=== PATIENT | female | born 1965 | race Caucasian/White ===

== ENCOUNTER 2019-11-18 11:16 | Outpatient (CLI) | payer BC, SELFPAY ==
--- NOTE | ~2019-11-18 | MM_ITS ---
MM diagnostic mammo unilat RT 11/18/2019 12:35 Indication: Follow-up right breast calcifications Procedure: Digital diagnostic images of the right breast/s] were performed using full field digital m ammography. 3-D tomosynthesis were also obtained and synthetic 2-D images were generated. CAD analysi s was performed and interpreted. Comparison: Comparison to multiple prior studies sequentially, with oldest reviewed study dated 08/25. Findings: The breasts are heterogenously dense, which may obscure small masses. There are scattered p unctate monomorphic calcifications of the right breast which are likely benign. Impression: 1: Probable benign right breast calcifications. BI-RADS CATEGORY 3-PROBABLY BENIGN FINDING RECOMMENDATION: 6 month follow up recommended. Reviewed, dictated and finalized at location A. [employer] Impression: 1: Probable benign right breast calcifications. BI-RADS CATEGORY 3-PROBABLY BENIGN FINDING RECOMMENDATION: 6 month follow up recommended.
== END 2019-11-18 11:17 | disposition home or self-care (01) ==
LOC: ANHIMG 11:17
PROVIDERS: Visit Provider Obstetrics & Gynecology Gynecology
DX: R92.1 Mammographic calcification found on diagnostic imaging of breast (principal)
CPT/HCPCS: 77065

== ENCOUNTER 2020-06-02 16:24 | Outpatient (CLI) | payer BC, SELFPAY ==
[2020-06-04 01:17] LABS: SARS-CoV-2 RNA PCR Negative
== END 2020-06-02 16:25 | disposition home or self-care (01) ==
LOC: CHSLAB 16:25
PROVIDERS: PCP Nurse Practitioner Family; Visit Provider Nurse Practitioner Family
DX: J02.9 Acute pharyngitis, unspecified (principal); Z20.828 Contact with and (suspected) exposure to other viral communicable diseases
CPT/HCPCS: 87635; C9803; U0003

== ENCOUNTER 2020-09-23 12:03 | Outpatient (CLI) | payer BC, SELFPAY ==
--- NOTE | ~2020-09-23 | US_ITS ---
EXAMINATION: US renal BI DATE: 09/23/2020 12:44 INDICATION: Unspecified abdominal pain. TECHNIQUE: Multiple ultrasound grayscale images of the kidneys were obtained. COMPARISON: None. FINDINGS: The right kidney measures 9.6 x 4.1 x 5.7 cm. The left kidney measures 9.8 x 5.7 x 5.0 cm. The kidney s demonstrate normal echogenicity. There is no hydronephrosis in either kidney. No stones identified . The bladder is normal. IMPRESSION: 1. Normal kidneys without hydronephrosis. Reviewed, dictated and finalized at location A. MAN
[2020-09-23 13:02] LABS: Alanine Aminotransferase 44 U/L (14-59); Albumin Level 3.7 g/dL (3.4-5.0); Alkaline Phosphatase 110 U/L (46-116); Anion Gap 7 mmol/L (8-16); Aspartate Amino Transferase 25 U/L (15-37); Bilirubin,Total 0.4 mg/dL (0.00-1.00); Blood Urea Nitrogen 9 mg/dL (7-18); Calcium 8.9 mg/dL (8.5-10.1); Carbon Dioxide 30 mmol/L (21-32); Chloride 102 mmol/L (98-108); Cholesterol 167 mg/dL (0-200); Estimated Glomerular Filt Rate > 60; Glucose 100 mg/dL (70-99); HDL Direct 44 mg/dL (40-60); LDL Cholesterol Calculated 79 mg/dL (<130); Osmolality Calculated 286 mOsm/kg (285-295); Potassium 4.2 mmol/L (3.5-5.1); Sodium 139 mmol/L (136-145); Triglycerides 219 mg/dL (0-150)
== END 2020-09-23 12:04 | disposition home or self-care (01) ==
LOC: CHSIMG 12:06
PROVIDERS: PCP Nurse Practitioner Family; Visit Provider Nurse Practitioner Family
DX: E78.5 Hyperlipidemia, unspecified (principal); R10.9 Unspecified abdominal pain; R30.0 Dysuria
CPT/HCPCS: 36415; 76775; 80053; 80061

== ENCOUNTER 2020-11-16 12:45 | Outpatient (CLI) | payer BC, SELFPAY ==
[2020-11-17 14:42] LABS: SARS-CoV-2 RNA PCR Positive
== END 2020-11-16 12:46 | disposition home or self-care (01) ==
PROVIDERS: PCP Nurse Practitioner Family; Visit Provider Nurse Practitioner Family
DX: U07.1 COVID-19 (principal); R05 Cough
CPT/HCPCS: C9803; U0003; U0005

== ENCOUNTER 2020-11-25 11:13 | Outpatient (CLI) | payer BC, SELFPAY ==
--- NOTE | ~2020-11-25 | XR_ITS ---
EXAMINATION: XR chest 2V DATE: 11/25/2020 11:45 INDICATION: Right upper quadrant abdominal pain. Cough. Recent COVID-19 pneumonia. TECHNIQUE: Frontal and lateral views of the chest were obtained. COMPARISON: Chest 2 views 06/06/2018 FINDINGS: A calcified right lung nodule and calcified right hilar and mediastinal lymph nodes are con sistent with old granulomatous disease. No pleural effusion or pneumothorax. The heart size is normal . There are surgical clips in the abdomen. IMPRESSION: 1. No acute cardiopulmonary disease. Reviewed, dictated and finalized at location A. [employer]
== END 2020-11-25 11:14 | disposition home or self-care (01) ==
LOC: CHSIMG 11:18
PROVIDERS: PCP Nurse Practitioner Family; Visit Provider Nurse Practitioner Family
DX: R09.89 Other specified symptoms and signs involving the circulatory and respiratory systems (principal)
CPT/HCPCS: 71046

== ENCOUNTER 2020-12-07 12:15 | Outpatient (CLI) | payer BC, SELFPAY ==
--- NOTE | ~2020-12-07 | MM_ITS ---
EXAMINATION: MM diagnostic aleta BI w william HISTORY: Follow-up right breast calcifications. TECHNIQUE: Additional 3-D tomosynthesis images of the breasts were performed and synthetic 2-D images were generated. CAD analysis was submitted and interpreted. COMPARISON: Comparison to multiple prior studies sequentially, with oldest reviewed study dated 06/25. BREAST PARENCHYMAL COMPOSITION: Breast composed of scattered areas of fibroglandular density. FINDINGS: Stable benign-appearing bilateral breast calcifications. Stable intramammary lymph node in the upper outer quadrant of the left breast. No new masses, calcifications or architectural distortio n in either breast to suggest malignancy. IMPRESSION: 1. No mammographic evidence for malignancy in either breast. Benign findings. 2. Routine yearly screening mammogram and regular clinical breast examination are recommended. BI-RADS Category 2: Benign finding(s). Reviewed, dictated and finalized at location A. IMPRESSION: 1. No mammographic evidence for malignancy in either breast. Benign findings. 2. Routine yearly screening mammogram and regular clinical breast examination a re recommended. BI-RADS Category 2: Benign finding(s).
== END 2020-12-07 12:16 | disposition home or self-care (01) ==
LOC: ANHIMG 12:17
PROVIDERS: PCP Nurse Practitioner Family; Visit Provider Nurse Practitioner
DX: R92.8 Other abnormal and inconclusive findings on diagnostic imaging of breast (principal)
CPT/HCPCS: 77062; 77066; G0279

== ENCOUNTER 2021-01-26 17:34 | Emergency (ER) | payer BC, SELFPAY ==
[2021-01-26 17:50] VITALS: BP 141/72; PULSE 99; RESP 16; TEMP 36.8; O2SAT 97
--- NOTE | 2021-01-26 18:17 | ED.BACK ---
HPI - Back Pain/Injury General Chief Complaint: Back Pain/Injury Stated Complaint: back pain Time Seen by Provider: 01/26/21 18:05 Source: patient Mode of arrival: ambulatory Limitations: no limitations History of Present Illness HPI Narrative: Patient comes in after a fall at home. She fell and hit her chest, below her left breast on a concrete retaining wall. Her left knee struck the ground. Pain is moderately severe in the left chest, below breast, with sharp pain on inspiration, since fall against wall. She denies shortness of breath. She denies feeling her heart is racing. Pain has been ongoing since fall about 3 hours ago. She has not taken any medications, and nothing has made the discomfort any better or worse. No other associated signs or symptoms. MD elicited complaint: fall Pertinent past history: recent trauma Onset (ago): hour(s) Timing: constant Severity: moderate Quality: sharp Radiation: none Exacerbating factors: none Relieving factors: none Context: fall Associated symptoms: denies other symptoms Related Data Home Medications Medication Instructions Recorded Confirmed escitalopram oxalate [Lexapro] 10 mg PO DAILY 08/08/19 01/26/21 hydroxychloroquine [Plaquenil] 200 mg PO BID 08/08/19 01/26/21 Allergies Allergy/AdvReac Type Severity Reaction Status Date / Time Penicillins Allergy Intermediate Unknown Verified 12/03/20 11:38 Sulfa (Sulfonamide Allergy Unknown EXACERBATION Verified 12/03/20 11:38 Antibiotics) OF LUPUS Review of Systems Constitutional: Constitutional: Reports no additional constitutional complaints Eyes: Eyes: Reports no additional eye complaints ENT: Reports system reviewed and no additional complaints, except as documented Cardiovascular: Cardiovascular: Reports no additional cardiovascular complaints Respiratory: Respiratory: Reports no additional respiratory complaints Gastrointestinal: Gastrointestinal: Reports no additional gastrointestinal complaints Genitourinary: Genitourinary: Reports no additional female genitourinary complaints Musculoskeletal: Musculoskeletal: Reports no additional musculoskeletal complaints Integumentary/Breasts: Skin/Breast: Reports system reviewed and no additional complaints, except as docu Neurologic: Reports system reviewed and no additional complaints, except as documented Psychiatric: Psychiatric: Reports no additional psychiatric complaints Endocrine: Endocrine: Reports no additional endocrine complaints Hematologic/Lymphatic: Hematologic/Lymphatic: Reports no additional hematologic/lymphatic complaints Allergic/Immunologic: Allergic/Immunologic: Reports no additional allergic/immunologic complaints [facility] Past Medical History Medical History Anxiety Arthritis Chronic back pain Depression FH: cholecystectomy LEIDA (generalized anxiety disorder) Hypercholesterolemia Hyperlipidemia Lupus Nicotine dependence Postmenopausal Surgical History Surgical History (Reviewed 01/27/21 @ : by Adams Holguin MD) H/O tubal ligation History of appendectomy Previous section Family History Family History (Reviewed 01/27/21 @ : by Adams Holguin MD) Other Family history of arthritis Hypertension Social History Social History (Reviewed 01/27/21 @ : by Adams Holguin MD) Smoking status: Never smoker Alcohol intake: current Exam Const: General: healthy appearing, no acute distress and alert Orientation/consciousness: patient oriented x3 HENMT: Head: normal to inspection Ears: external ears normal and TM's normal bilaterally General nose exam: Normal external nose present Throat: posterior oropharynx normal Eyes: Conjunctivae: conjunctivae normal Neck: Neck: normal visual inspection Chest: Chest palpation & inspection: normal inspection of the chest Other: mild tenderness to area of ribs just below left breast Resp: Effort & In
[2021-01-26] MEDS: DEXAMETHASONE 4 MG TABLET 12 MG PO (18:30)
[2021-01-26] MEDS: KETOROLAC (*BKC) 60 MG/2 ML VIAL IM (18:30)
[2021-01-26] MEDS: BACLOFEN 10 MG TABLET 20 MG PO (18:30)
== END 2021-01-26 19:13 | disposition home or self-care (01) ==
PROVIDERS: Emergency Provider Emergency Medicine; PCP Nurse Practitioner Family
DX: M54.5 Low back pain (principal); M54.16 Radiculopathy, lumbar region; F41.9 Anxiety disorder, unspecified; M19.90 Unspecified osteoarthritis, unspecified site; F41.1 Generalized anxiety disorder; E78.00 Pure hypercholesterolemia, unspecified; E78.5 Hyperlipidemia, unspecified; M32.9 Systemic lupus erythematosus, unspecified; F17.200 Nicotine dependence, unspecified, uncomplicated
CPT/HCPCS: 96372; 99283; A9270; J1885; J8540

== ENCOUNTER 2021-01-29 07:10 | Outpatient (CLI) | payer BC, SELFPAY ==
[2021-01-29 08:20] LABS: Anion Gap 13 mmol/L (8-16); Blood Urea Nitrogen 16 mg/dL (7-18); Calcium 9.3 mg/dL (8.5-10.1); Carbon Dioxide 24 mmol/L (21-32); Chloride 103 mmol/L (98-108); Estimated Glomerular Filt Rate > 60; Glucose 141 mg/dL (70-99); Osmolality Calculated 293 mOsm/kg (285-295); Sodium 140 mmol/L (136-145)
== END 2021-01-29 07:11 | disposition home or self-care (01) ==
LOC: CHSLAB 07:17
PROVIDERS: PCP Nurse Practitioner Family
DX: M54.5 Low back pain (principal)
CPT/HCPCS: 36415; 80048

== ENCOUNTER 2021-02-22 14:35 | Emergency (ER) | payer BC, SELFPAY ==
--- NOTE | ~2021-02-22 | XR_ITS ---
XR toe 1st RT min 2V 02/22/2021 15:16 Indication: Right first toe pain Procedure: 3 views right first toe Comparison: 08/25/2010 Findings: There is moderate osteoarthritis of the first MTP joint with hallux valgus. Osteopenia. Mil d soft tissue swelling of the first digit. No foreign bodies. No acute fracture. No evidence for oste omyelitis. Lisfranc joint intact. Impression: 1: No acute bone or joint abnormality. 2: Moderate osteoarthritis first MTP joint hallux valgus. Reviewed, dictated and finalized at location A. Impression: 1: No acute bone or joint abnormality. 2: Moderate osteoarthritis first MTP joint hallux valgus.
[2021-02-22 14:40] VITALS: BP 122/60; PULSE 62; RESP 17; TEMP 37.2; O2SAT 95
--- NOTE | 2021-02-22 15:20 | ED.GENADULT ---
HPI - General Adult General Chief complaint: Extremity Injury, Lower Stated complaint: Pain in big R toe Source: patient Mode of arrival: ambulatory Limitations: no limitations History of Present Illness HPI narrative: Nelli is a 55F with a PMH of nicotine dependence, LEIDA, HLD, previous COVID19 infection and SLE with vasculitis that presented pain, swelling and discoloration that has been getting worse for a few weeks. First she stubbed it and had a laceration. It had swelling and pain so her regular doctor gave her clindamycin. She took this for a few days but stopped as she had a yeast infection and other adverse effects. Despite the antibiotics it continued to swell, become more purple, and more painful. Related Data Home Medications Medication Instructions Recorded Confirmed escitalopram oxalate [Lexapro] 10 mg PO DAILY 08/08/19 02/22/21 hydroxychloroquine [Plaquenil] 200 mg PO BID 08/08/19 02/22/21 rosuvastatin 10 mg PO DAILY 02/22/21 02/22/21 Allergies Allergy/AdvReac Type Severity Reaction Status Date / Time Penicillins Allergy Intermediate Unknown Verified 02/12/21 14:14 Sulfa (Sulfonamide Allergy Unknown EXACERBATION Verified 02/12/21 14:14 Antibiotics) OF LUPUS Review of Systems Constitutional: Constitutional: Reports no additional constitutional complaints, Denies chills and Denies fever(s) Eyes: Eyes: Reports no additional eye complaints ENT: Reports system reviewed and no additional complaints, except as documented Cardiovascular: Cardiovascular: Reports no additional cardiovascular complaints Respiratory: Respiratory: Reports no additional respiratory complaints Gastrointestinal: Gastrointestinal: Reports no additional gastrointestinal complaints Genitourinary: Genitourinary: Reports no additional female genitourinary complaints Musculoskeletal: Musculoskeletal: Reports no additional musculoskeletal complaints Integumentary/Breasts: Skin/Breast: Reports as per HPI Neurologic: Reports system reviewed and no additional complaints, except as documented Psychiatric: Psychiatric: Reports no additional psychiatric complaints Endocrine: Endocrine: Reports no additional endocrine complaints Hematologic/Lymphatic: Hematologic/Lymphatic: Reports as per HPI Allergic/Immunologic: Allergic/Immunologic: Reports no additional allergic/immunologic complaints [facility] Past Medical History Medical History (Updated 02/22/21 @ 17:32 by Lee Gaxiola DO) Anxiety Arthritis Chronic back pain Depression FH: cholecystectomy LEIDA (generalized anxiety disorder) Hypercholesterolemia Hyperlipidemia Lupus Nicotine dependence Postmenopausal Surgical History Surgical History H/O tubal ligation History of appendectomy Previous section Family History Family History Other Family history of arthritis Hypertension Social History Social History Smoking status: Current every day smoker Alcohol intake: current Substance use: never Substance use type: does not use Exam Const: General: no acute distress and alert; No confusion Orientation/consciousness: patient oriented x3 Limitations: No altered mental status HENMT: Head: normal to inspection Other: atraumatic Eyes: Conjunctivae: conjunctivae normal Pupils: Equal, round and reactive pupils present Neck: Neck: normal visual inspection Chest: Chest palpation & inspection: normal inspection of the chest Resp: Effort & Inspection: normal respiratory effort, not labored and not tachypneic Cardio: Rate: regular rate GI: GI Palp: Yes Soft to palpation, No Tenderness to palpation present (GI) and No Guarding due to palpation present (GI) : General: Yes no CVA tenderness Skin: Other: Right great toe was swollen, purple and very TTP. It had 3 sec capillar
--- NOTE | 2021-02-22 15:27 | PC.NURSE ---
SPO2 ATTEMPTED ON RIGHT GREAT TOE UNSUCCESSFUL - SPO2 ON LEFT GREAT TOE 85% - SUCCESSFUL SPO2 ON BUE 95%
[2021-02-22 15:29] LABS: Basophils Absolute Auto 0.05 K/mm3 (0.00-0.10); Basophils Percent Auto 0.7 % (0.0-1.0); Eosinophils Absolute Auto 0.37 K/mm3 (0.02-0.50); Eosinophils Percent Auto 5.3 % (1.0-6.0); Hematocrit 41.7 % (35.0-49.0); Hemoglobin 14.4 g/dL (12.0-15.0); Immature Granulocyte Absolute 0.02 K/mm3 (0.00-0.00); Immature Granulocyte Percent A 0.3 % (0.0-0.0); Lymphocytes Absolute Auto 2.88 K/mm3 (1.10-4.50); Mean Corpuscular HGB Conc 34.5 g/dL (32.0-36.0); Mean Corpuscular Hemoglobin 32.5 pg (27.0-31.0); Mean Corpuscular Volume 94.1 fL (78.0-102.0); Mean Platelet Volume 9.8 fl (9.2-11.8); Monocytes Absolute Auto 0.67 K/mm3 (0.10-0.90); Monocytes Percent Auto 9.5 % (2.0-11.0); Neutrophils Percent Auto 43.2 % (50.0-70.0); Platelet Count Result 266 K/mm3 (150-420); Red Blood Count 4.43 M/mm3 (4.20-5.40)
[2021-02-22 15:52] LABS: Alanine Aminotransferase 39 U/L (14-59); Albumin Level 3.4 g/dL (3.4-5.0); Alkaline Phosphatase 114 U/L (46-116); Anion Gap 11 mmol/L (8-16); Aspartate Amino Transferase 26 U/L (15-37); Bilirubin,Total 0.3 mg/dL (0.00-1.00); Blood Urea Nitrogen 7 mg/dL (7-18); Calcium 9.2 mg/dL (8.5-10.1); Carbon Dioxide 26 mmol/L (21-32); Chloride 100 mmol/L (98-108); Estimated Glomerular Filt Rate > 60; Glucose 109 mg/dL (70-99); Osmolality Calculated 283 mOsm/kg (285-295); Potassium 4.1 mmol/L (3.5-5.1); Sodium 137 mmol/L (136-145); Total Protein 7.3 g/dL (6.4-8.2)
[2021-02-22 15:54] LABS: CRP 0.4 mg/dL (0.0-0.9)
[2021-02-22] MEDS: HYDROcodone/acetaminophen (*CRX) 5-325 MG TABLET 1 TAB PO (16:00)
[2021-02-22 16:28] LABS: Erythrocyte Sedimentation Rate 42 mm/hr (0-20)
--- NOTE | 2021-02-22 16:38 | PC.NURSE ---
DR DIAS CALLED FOR CONSULT [phone]
[2021-02-22 17:18] LABS: Partial Thromboplastin Time 26.6 SEC (23.90-30.70); Prothrombin Time 10.3 Seconds (9.50-12.10)
[2021-02-22] MEDS: HEPARIN SODIUM 5,000 UNITS/ML VIAL 4000 UNITS IV PUSH (17:29)
[2021-02-22] MEDS: HEPARIN SOD/D5W 100 UNITS/ML 25,000 UNITS/250 ML BAG 12 UNITS IV CONT (17:29)
[2021-02-22 17:45] LABS: SARS-CoV-2 Ag Negative (Negative)
[2021-02-22 17:51] VITALS: BP 132/85; PULSE 113; RESP 17; O2SAT 95
[2021-02-22 18:09] VITALS: BP 123/76; PULSE 101; RESP 15; O2SAT 94
== END 2021-02-22 18:15 | disposition short-term general hospital (02) ==
PROVIDERS: Emergency Provider Family Medicine; PCP Nurse Practitioner Family
DX: I99.8 Other disorder of circulatory system (principal); E78.5 Hyperlipidemia, unspecified; I77.6 Arteritis, unspecified; M32.9 Systemic lupus erythematosus, unspecified; M54.9 Dorsalgia, unspecified; G89.29 Other chronic pain; E78.00 Pure hypercholesterolemia, unspecified; M19.90 Unspecified osteoarthritis, unspecified site; F41.1 Generalized anxiety disorder; F17.200 Nicotine dependence, unspecified, uncomplicated
CPT/HCPCS: 36415; 73660; 80053; 85025; 85610; 85652; 85730; 86140; 87426; 96365; 99285; A9270; C9803; J1644

== ENCOUNTER 2021-03-09 20:27 | Emergency (ER) | payer BC, SELFPAY ==
[2021-03-09 20:48] VITALS: BP 115/72; PULSE 95; RESP 20; TEMP 36.9; O2SAT 97
--- NOTE | 2021-03-09 21:57 | ED.WOUNDLAC ---
HPI - Wound/Laceration General Source: patient and family Mode of arrival: ambulatory History of Present Illness HPI narrative: Patient presents after having femoral bypass on both sides. Wounds in groin are healing, she is worried because wound on right side, has partially opened, and the subcutaneous tissue there, which is visible, this is white, she has interpreted this subcutaneous tissue, as being pus. The wounds have a minimal amount of erythema them. Onset (ago): day(s) Location: other (groin bilaterally) Place: home Treatments prior to arrival: other (dry dressings) Related Data Home Medications Medication Instructions Recorded Confirmed escitalopram oxalate [Lexapro] 10 mg PO DAILY 08/08/19 03/09/21 hydroxychloroquine [Plaquenil] 200 mg PO BID 08/08/19 03/09/21 rosuvastatin [Crestor] 10 mg PO DAILY 02/22/21 03/09/21 metoprolol succinate 25 mg PO DAILY 03/09/21 03/09/21 Allergies Allergy/AdvReac Type Severity Reaction Status Date / Time Penicillins Allergy Intermediate Unknown Verified 03/09/21 20:53 Sulfa (Sulfonamide Allergy Unknown EXACERBATION Verified 03/09/21 20:53 Antibiotics) OF LUPUS Review of Systems Constitutional: Constitutional: Reports no additional constitutional complaints, Denies chills and Denies fever(s) Eyes: Eyes: Reports no additional eye complaints ENT: Reports system reviewed and no additional complaints, except as documented Cardiovascular: Cardiovascular: Reports no additional cardiovascular complaints Respiratory: Respiratory: Reports no additional respiratory complaints Gastrointestinal: Gastrointestinal: Reports no additional gastrointestinal complaints Genitourinary: Genitourinary: Reports no additional female genitourinary complaints Musculoskeletal: Musculoskeletal: Reports no additional musculoskeletal complaints Integumentary/Breasts: Skin/Breast: Reports as per HPI Neurologic: Reports system reviewed and no additional complaints, except as documented Psychiatric: Psychiatric: Reports no additional psychiatric complaints Endocrine: Endocrine: Reports no additional endocrine complaints Hematologic/Lymphatic: Hematologic/Lymphatic: Reports no additional hematologic/lymphatic complaints Allergic/Immunologic: Allergic/Immunologic: Reports no additional allergic/immunologic complaints [facility] Past Medical History Medical History Anxiety Arthritis Chronic back pain Depression FH: cholecystectomy LEIDA (generalized anxiety disorder) Hypercholesterolemia Hyperlipidemia Lupus Nicotine dependence Postmenopausal Surgical History Surgical History H/O tubal ligation History of appendectomy Previous section Family History Family History Other Family history of arthritis Hypertension Social History Social History Smoking status: Current every day smoker Alcohol intake: current Substance use: never Substance use type: does not use Gender identity (if verbalized by the patient): Male Exam Const: General: no acute distress Orientation/consciousness: patient oriented x3 HENMT: Head: normal to inspection Ears: external ears normal General nose exam: Normal external nose present Mouth: Yes Normal oral and palatal mucosa present Throat: posterior oropharynx normal Eyes: Conjunctivae: conjunctivae normal Neck: Neck: normal visual inspection Chest: Chest palpation & inspection: normal inspection of the chest Resp: Effort & Inspection: normal respiratory effort Cardio: Rate: regular rate Rhythm: regular rhythm GI: GI Palp: Yes Soft to palpation (nontender) Skin: Other: small laceration wound to right groin from surgery is healing, but with some partial separation. wound to left groin is healing well. she has a small woun
[2021-03-09 22:18] VITALS: BP 118/64; PULSE 87; RESP 20; TEMP 36.8; O2SAT 97
[2021-03-09] MEDS: CEPHALEXIN 500 MG CAPSULE (22:18)
== END 2021-03-09 22:20 | disposition home or self-care (01) ==
PROVIDERS: Emergency Provider Emergency Medicine; PCP Nurse Practitioner Family
DX: L53.8 Other specified erythematous conditions (principal); T81.89XA Other complications of procedures, not elsewhere classified, initial encounter
CPT/HCPCS: 99283; A9270

== ENCOUNTER 2021-09-21 08:53 | Outpatient (CLI) | payer BC, SELFPAY ==
[2021-09-21 09:11] LABS: Basophils Absolute Auto 0.06 K/mm3 (0.00-0.10); Basophils Percent Auto 0.8 % (0.0-1.0); Eosinophils Absolute Auto 0.36 K/mm3 (0.02-0.50); Eosinophils Percent Auto 4.8 % (1.0-6.0); Hematocrit 45.2 % (35.0-49.0); Hemoglobin 15.2 g/dL (12.0-15.0); Immature Granulocyte Absolute 0.02 K/mm3 (0.00-0.00); Immature Granulocyte Percent A 0.3 % (0.0-0.0); Lymphocytes Absolute Auto 3.55 K/mm3 (1.10-4.50); Mean Corpuscular HGB Conc 33.6 g/dL (32.0-36.0); Mean Corpuscular Hemoglobin 32.3 pg (27.0-31.0); Mean Platelet Volume 9.5 fl (9.2-11.8); Monocytes Absolute Auto 0.64 K/mm3 (0.10-0.90); Monocytes Percent Auto 8.5 % (2.0-11.0); Neutrophils Absolute Auto 2.9 K/mm3 (1.7-7.2); Neutrophils Percent Auto 38.6 % (50.0-70.0); Platelet Count Result 176 K/mm3 (150-420); Red Blood Count 4.71 M/mm3 (4.20-5.40); Red Cell Distribution Width 14.1 % (11.6-14.4); White Blood Count 7.6 K/mm3 (4.8-10.8)
[2021-09-21 09:49] LABS: Alanine Aminotransferase 33 U/L (14-59); Albumin Level 3.5 g/dL (3.4-5.0); Alkaline Phosphatase 105 U/L (46-116); Anion Gap 6 mmol/L (8-16); Aspartate Amino Transferase 24 U/L (15-37); Bilirubin,Total 0.3 mg/dL (0.00-1.00); Blood Urea Nitrogen 10 mg/dL (7-18); Calcium 8.6 mg/dL (8.5-10.1); Carbon Dioxide 29 mmol/L (21-32); Chloride 107 mmol/L (98-108); Estimated Glomerular Filt Rate > 60; Glucose 93 mg/dL (70-99); Osmolality Calculated 293 mOsm/kg (285-295); Potassium 4.1 mmol/L (3.5-5.1); Sodium 142 mmol/L (136-145); Total Protein 6.6 g/dL (6.4-8.2)
== END 2021-09-21 08:54 | disposition home or self-care (01) ==
LOC: CHSLAB 08:56
PROVIDERS: PCP Nurse Practitioner Family
DX: Z01.812 Encounter for preprocedural laboratory examination (principal)
CPT/HCPCS: 36415; 80053; 85025

== ENCOUNTER 2022-08-09 08:52 | Outpatient (CLI) | payer BC, SELFPAY ==
--- NOTE | ~2022-08-09 | MM_ITS ---
EXAMINATION: MM screening [place] BI w william HISTORY: Screening TECHNIQUE: Craniocaudal and mediolateral oblique 3-D tomosynthesis images were obtained and synthetic 2-D images were generated. CAD analysis was submitted and interpreted. COMPARISON: Comparison to multiple prior studies sequentially, with oldest reviewed study dated 01/2017. BREAST PARENCHYMAL COMPOSITION: There are scattered areas of fibroglandular density. FINDINGS: There are focal asymmetries bilaterally including the medial aspect of the right breast on CC view and central aspect of the left breast on MLO view, both located anteriorly. There are benign breast calcifications. No suspicious architectural distortion. IMPRESSION: 1. Developing bilateral breast asymmetries. 2. Additional mammographic views and possible breast ultrasound are recommended. BI-RADS Category 0: Incomplete: Needs additional imaging evaluation. Reviewed, dictated and finalized at location A. [employer] IMPRESSION: 1. Developing bilateral breast asymmetries. 2. Additional mammographic views and possible breast ultrasound are recommended . BI-RADS Category 0: Incomplete: Needs additional imaging evaluation.
--- NOTE | ~2022-08-09 | DEXA_ITS ---
Bone Density Report Name: GREER HANNA Age: 57 Sex: Female Ethnicity: White Date of : 1965 Indication: postmenopausal; screening for osteoporosis; height loss; Referring Provider: SARAH, BRENDA Study: Bone densitometry was performed. Exam Date: August 09, 2022 Accession number: [id number] Bone Density: Region BMD T-score Z-score Classification AP Spine(L1, L2, L3) 1.364 3.1 4.4 Normal Femoral Neck (Left) 0.796 -0.5 0.7 Normal Total Hip (Left) 0.972 0.2 1.1 Normal Femoral Neck (Right) 0.735 -1.0 0.2 Normal Total Hip (Right) 0.858 -0.7 0.1 Normal Total Hip Mean 0.915 -0.3 0.6 Normal World Health Organization criteria for BMD impression classify patients as: Normal (T-score at or above -1.0), Osteopenia (T-score between -1.0 and -2.5), or Osteoporosis (T-score at or below -2.5). 10-year Fracture Risk: FRAX not reported because: All T-scores for Spine Total, Hip Total, Femoral Neck at or above -1.0 Clinical Information Provided by Patient: Smokes Patient maximum height was 65 Drinks caffeinated beverages Onset of menses at age 11 Number of children 3 Impression: The patient has normal bone mass. The patient has risk factors, including: smoking. Discussion: BONE DENSITY IS ABOVE THE MINIMUM DESIRABLE LEVEL AT ALL SKELETAL SITES TESTED. This patient?s bone mineral density is above the minimum desirable level (T-score -1.0 or better) at all sites measured. The patient should follow a healthful lifestyle (good nutrition with adequate calcium and vitamin D, and appropriate weight-bearing exercise). Follow-Up: Consider repeating this study in 5 years or sooner if there is some new clinical indication. Reported by: CHARLES on 08/09/2022 9:39:00 AM. Reviewed, dictated and finalized at location AWale JC
== END 2022-08-09 08:53 | disposition home or self-care (01) ==
PROVIDERS: PCP Nurse Practitioner Family; Visit Provider Nurse Practitioner
DX: Z12.31 Encounter for screening mammogram for malignant neoplasm of breast (principal); M85.88 Other specified disorders of bone density and structure, other site; R92.8 Other abnormal and inconclusive findings on diagnostic imaging of breast
CPT/HCPCS: 77063; 77067; 77080

== ENCOUNTER 2022-09-04 12:05 | Emergency (ER) | payer BC, SELFPAY ==
[2022-09-04 12:15] VITALS: BP 150/91; PULSE 94; RESP 20; TEMP 36.5; O2SAT 98
--- NOTE | 2022-09-04 13:57 | ED.URI ---
HPI - URI/Sore Throat General Chief Complaint: Upper Respiratory Infection Stated Complaint: Chest Congestion/Cough Time Seen by Provider: 09/04/22 13:58 Source: patient, RN notes reviewed and old records reviewed Mode of arrival: ambulatory Limitations: no limitations History of Present Illness HPI Narrative: 57 year old female who presents to [facility] care with complaints of 1 1/2 weeks duration of head congestion, chest congestion, cough, some dyspnea and has noted some wheezing. Patient reports that she has taken NyQuil, Claritin, Delsym cough syrup, and cold medication. Patient reports that she has not had Covid vaccinations or flu shot, did have COVID previously in 2019. Patient reports generalized discomfort. MD elicited complaint: cough, rhinorrhea and nasal congestion Pertinent past history: immunosuppression and other (tobacco use) Onset (ago): week(s) (1.5) Pain scale (0-10): 5 Treatments prior to arrival: cold medicine and other (Delsym and Claritin) Related Data Home Medications Medication Instructions Recorded Confirmed metoprolol succinate 25 mg 25 mg PO DAILY 03/09/21 09/04/22 tablet,extended release 24 hr aspirin 81 mg chewable tablet 81 mg PO DAILY 09/04/22 09/04/22 Allergies Allergy/AdvReac Type Severity Reaction Status Date / Time Penicillins Allergy Intermediate Unknown Verified 09/04/22 13:30 Sulfa (Sulfonamide Allergy Unknown EXACERBATION Verified 09/04/22 13:30 Antibiotics) OF LUPUS Review of Systems Review of Systems: CONSTITUTIONAL: Denies fever, chills, or sweats. EYES: Denies visual changes, redness, or discharge. ENT:Reports rhinorrhea, congestion,no sore throat, or otalgia. CARDIOVASCULAR: Denies chest pain, palpitations, or edema. RESPIRATORY: Reports cough or dyspnea and wheezing GASTROINTESTINAL: Denies abdominal pain, nausea, vomiting, or diarrhea. GENITOURINARY: Denies dysuria or hematuria. SKIN: Denies rash or itching. MUSCULOSKELETAL: Denies back pain, joint pain, reports generalized discomfort. NEUROLOGIC: Denies headache, numbness, or weakness. PSYCHIATRIC: Reports history of anxiety or depression. All systems reviewed & are unremarkable except as noted in HPI and below PMFSH Past Medical History Medical History Anxiety Arthritis Chronic back pain Depression FH: cholecystectomy LEIDA (generalized anxiety disorder) Hypercholesterolemia Hyperlipidemia Lupus Nicotine dependence Postmenopausal Surgical History Surgical History H/O tubal ligation History of appendectomy Previous section Family History Family History Other Family history of arthritis Hypertension Social History Social History Smoking packs per day: 1 Smoking cigarettes per day: 20.0 Years smoked: 37 Smoking pack-years: 37.00 Smoking status: Current every day smoker Tobacco type: cigarettes Alcohol intake: current Drinks per week: 1 Substance use: never Substance use type: does not use Gender identity (if verbalized by the patient): Male Spiritual care concerns: No Comments At time of signature, agree with nursing past medical, surgical, social and family history. There is no relevant family history pertinent to the presenting complaint Exam Narrative: GENERAL: Well-appearing, well-nourished, and in no acute distress. HEAD: Normocephalic, atraumatic. EYES: PERRLA and EOMI. ENT: Nares edematous green nasal rhinorrhea no epistaxis. Mucous membranes moist, throat mildly red with no lesions or exudates or swelling, post nasal drainage.TM's normal with dull light reflex NECK: Supple.no lymphadenopathy CHEST: Scattered wheezing to auscultation. No respiratory distress.SAO2 98% on room air HEART: Regular rate and rhythm. No murmur heard. Norm
== END 2022-09-04 14:20 | disposition home or self-care (01) ==
PROVIDERS: Emergency Provider Registered Nurse
DX: J32.9 Chronic sinusitis, unspecified (principal); J40 Bronchitis, not specified as acute or chronic; F17.210 Nicotine dependence, cigarettes, uncomplicated; M19.90 Unspecified osteoarthritis, unspecified site; E78.00 Pure hypercholesterolemia, unspecified; E78.5 Hyperlipidemia, unspecified; Z79.82 Long term (current) use of aspirin
CPT/HCPCS: 99213; G0463

== ENCOUNTER 2022-10-20 11:12 | Outpatient (CLI) | payer BC, SELFPAY ==
--- NOTE | ~2022-10-20 | MM_ITS ---
EXAMINATION: MM diagnostic [place] BI w william HISTORY: Bilateral asymmetries on screening mammogram TECHNIQUE: Additional 3-D tomosynthesis images of the breasts were performed and synthetic 2-D images were generated. CAD analysis was submitted and interpreted. COMPARISON: 08/09/2022, 12/07/2020, 11/18/2019, 10/16/2019 BREAST PARENCHYMAL COMPOSITION: There are scattered areas of fibroglandular density. FINDINGS: There is a return to baseline fibroglandular appearance with spot compression of the breast s in the areas questioned on screening mammogram. IMPRESSION: 1. No mammographic evidence of malignancy. 2. Recommend routine screening mammography in one year. BI-RADS Category 1: Negative Reviewed, dictated and finalized at location A. [employer]
== END 2022-10-20 11:13 | disposition home or self-care (01) ==
PROVIDERS: Visit Provider Obstetrics & Gynecology Gynecology
DX: R92.8 Other abnormal and inconclusive findings on diagnostic imaging of breast (principal)
CPT/HCPCS: 77062; 77066; G0279

== ENCOUNTER 2023-02-06 13:24 | Outpatient (CLI) | payer BC, SELFPAY ==
--- NOTE | 2023-02-06 13:33 | ECHO_ITS ---
Patient Info Name: Nelli Peters Age: 57 years : 1965 Gender: Female Ht: 64 in Wt: 200 lbs BSA: 2.06 m2 HR: 89 bpm BP: 138 / 81 mmHg Heart Rhythm: Sinus Rhythm Technical Quality: Fair Exam Date: 02/06/2023 1:22 PM Exam Location: [facility] Patient Status: Outpatient Admit Date: 02/06/2023 Staff Ordering Physician: Khloe Albright [employer] Specialist: Xochitl Horner RDCS Attending Provider: Khloe Albright Referring Physician: Jose Ramon MAYES; Exam Type: CA echo doppler color flow Study Info Indications - coronary artery disease R06.02 - Shortness of breath Complete two-dimensional, color flow and Doppler transthoracic echocardiogram is performed. Summary 1. Complete two-dimensional, color flow and Doppler transthoracic echocardiogram is performed. 2. Left ventricular chamber dimension is normal. 3. Left ventricular systolic function is normal, estimated at 60-65%. 4. The left ventricular diastolic function is grade II diastolic dysfunction. 5. E/e' 14 is mildly elevated. 6. Left atrial chamber dimension is mildly enlarged. 7. There is mild mitral valve regurgitation. 8. There is mild tricuspid valve regurgitation. 9. No pulmonary hypertension, estimated pulmonary arterial systolic pressure is 38 mmHg. 10. There is trace pulmonic regurgitation. Left Ventricle E/e' 14 is mildly elevated. Left ventricular chamber dimension is normal. Left ventricular systolic function is normal, estimated at 60-65%. The left ventricular diastolic function is grade II diastolic dysfunction. Right Ventricle Right ventricular chamber dimension is normal. Right ventricular systolic function is normal. Left Atria Left atrial chamber dimension is mildly enlarged. Right Atria Right atrial chamber dimension is normal. Aortic Valve The aortic valve is trileaflet. There is no aortic valve stenosis. There is no aortic valve regurgitation. Pulmonic Valve There is trace pulmonic regurgitation. Mitral Valve There is no mitral valve stenosis. There is mild mitral valve regurgitation. Tricuspid Valve There is mild tricuspid valve regurgitation. No pulmonary hypertension, estimated pulmonary arterial systolic pressure is 38 mmHg. Pericardium/Pleural There is no pericardial effusion. Inferior Vena Cava Normal inferior vena cava with >50% collapse upon inspiration consistent with normal right atrial pressure, 5 mmHg. Aorta The aortic root size at the sinus of Valsalva is normal. Left Ventricular Outflow Tract Name Value Normal LVOT 2D LVOT Diameter 2.0 cm LVOT Doppler LVOT Peak Velocity 66 cm/s LVOT Peak Gradient 2 mmHg LVOT Mean Gradient 1 mmHg LVOT VTI 15 cm LVOT VTI/AV VTI Ratio 0.5 LVOT Stroke Volume 48 ml Pulmonic Valve Name Value Normal RVOT Doppler RVOT Peak
--- NOTE | 2023-02-08 16:13 | WPDHOLTEREM ---
Holter/Event Monitor Holter/Event Monitor Date of procedure: 02/06/23 Holter/Event Procedure: 24 Hr Holter Monitor Indications: SOB Conclusion: 1. 24 hour holter monitor on 02/06/23. 2. Predominant rhythm is sinus rhythm. HR range 58-95 bpm; average HR 74 bpm. 3. There are 23 premature supraventricular complexes and 5 supraventricular couplets. No supraventricular tachycardia. 4. There are 12,891 premature ventricular complexes, 474 ventricular couplets, 148 ventricular triplets, 931 ventricular bigeminy and 5,068 ventricular trigeminy. There are 29 episodes of ventricular tachycardia, fastest at 174 bpm and longest lasting 7 beats. 5. No sinoatrial or atrioventricular blocks. No significant pauses greater than 2 seconds. 6. No symptoms available for correlation.
== END 2023-02-06 13:25 | disposition home or self-care (01) ==
LOC: CHSIMG 13:27
PROVIDERS: PCP Nurse Practitioner Family
DX: I25.10 Atherosclerotic heart disease of native coronary artery without angina pectoris (principal); R06.02 Shortness of breath; I08.1 Rheumatic disorders of both mitral and tricuspid valves
CPT/HCPCS: 93225; 93226; 93306

== ENCOUNTER 2023-02-08 08:50 | Outpatient (CLI) | payer BC, SELFPAY ==
[2023-02-08 09:51] LABS: Alanine Aminotransferase 25 U/L (14-59); Albumin Level 3.6 g/dL (3.4-5.0); Alkaline Phosphatase 105 U/L (46-116); Anion Gap 7 mmol/L (8-16); Aspartate Amino Transferase 27 U/L (15-37); Bilirubin,Total 0.4 mg/dL (0.00-1.00); Blood Urea Nitrogen 6 mg/dL (7-18); Calcium 9.2 mg/dL (8.5-10.1); Carbon Dioxide 31 mmol/L (21-32); Chloride 104 mmol/L (98-108); Cholesterol 175 mg/dL (0-200); Estimated Glomerular Filt Rate > 60; Glucose 96 mg/dL (70-99); HDL Direct 52 mg/dL (40-60); LDL Cholesterol Calculated 83 mg/dL (<130); Osmolality Calculated 291 mOsm/kg (285-295); Potassium 4.5 mmol/L (3.5-5.1); Sodium 142 mmol/L (136-145); Total Protein 6.8 g/dL (6.4-8.2); Triglycerides 200 mg/dL (0-150)
== END 2023-02-08 08:51 | disposition home or self-care (01) ==
LOC: CHSLAB 08:54
PROVIDERS: PCP Nurse Practitioner Family
DX: I70.213 Atherosclerosis of native arteries of extremities with intermittent claudication, bilateral legs (principal); I10 Essential (primary) hypertension; E78.5 Hyperlipidemia, unspecified
CPT/HCPCS: 36415; 80053; 80061

== ENCOUNTER 2023-09-02 12:20 | Emergency (ER) | payer BC, SELFPAY ==
[2023-09-02 12:29] VITALS: BP 143/92; PULSE 88; RESP 20; TEMP 36.7; O2SAT 97
--- NOTE | 2023-09-02 12:58 | ED.URI ---
HPI - URI/Sore Throat General Chief Complaint: Upper Respiratory Infection Stated Complaint: Cough/Congestion Time Seen by Provider: 09/02/23 12:58 Source: patient, RN notes reviewed and old records reviewed Mode of arrival: ambulatory Limitations: no limitations History of Present Illness HPI Narrative: 58-year-old female presents to [facility] with complaints of cough, congestion this started around Thanksgiving. Patient states saw her primary care doctor on August 22, 2023 and was given Zithromax and Tessalon Perles, patient states is worse. Patient states coughing up green thick phlegm, with green sinus drainage. Patient also taking jrnd-hmg-evaykad medications with no relief. patient denies chest pain, weakness, dizziness, vomiting MD elicited complaint: cough and nasal congestion Onset (ago): week(s) (3-4) Related Data Home Medications Medication Instructions Recorded Confirmed metoprolol succinate 25 mg 25 mg PO DAILY 03/09/21 09/02/23 tablet,extended release 24 hr aspirin 81 mg chewable tablet 81 mg PO DAILY 09/04/22 09/02/23 Allergies Allergy/AdvReac Type Severity Reaction Status Date / Time Penicillins Allergy Intermediate Unknown Verified 09/02/23 12:49 Sulfa (Sulfonamide Allergy Unknown EXACERBATION Verified 09/02/23 12:49 Antibiotics) OF LUPUS Review of Systems Constitutional: Constitutional: Reports no additional constitutional complaints Eyes: Eyes: Reports no additional eye complaints ENT: Reports as per HPI, Reports headache(s), Reports nasal congestion and Reports nasal discharge Cardiovascular: Cardiovascular: Reports no additional cardiovascular complaints Respiratory: Respiratory: Reports as per HPI, Reports chest congestion, Reports cough, Reports pain with cough and Denies dyspnea Neurologic: Reports system reviewed and no additional complaints, except as documented [facility] Past Medical History Medical History Anxiety Arthritis Chronic back pain Depression FH: cholecystectomy LEIDA (generalized anxiety disorder) Hypercholesterolemia Hyperlipidemia Lupus Nicotine dependence Postmenopausal Surgical History Surgical History H/O tubal ligation History of appendectomy Previous section Family History Family History Other Family history of arthritis Hypertension Social History Social History (Reviewed 09/02/23 @ 13:00 by ЕКАТЕРИНА Rose Smoking packs per day: 1 Smoking cigarettes per day: 20.0 Years smoked: 37 Smoking pack-years: 37.00 Smoking status: Current every day smoker Tobacco type: cigarettes Alcohol intake: current Drinks per week: 1 Substance use: never Substance use type: does not use Living arrangements: with family Gender identity (if verbalized by the patient): Male Spiritual care concerns: No Comments At the time of my signature, I reviewed and agree with the nursing past medical, surgical, social, and family history. There is no relevant family history pertinent to the patient complaint. Exam Const: General: cooperative, healthy appearing, no acute distress and well nourished Nutritional Appearance: well nourished Orientation/consciousness: patient oriented x3 Limitations: no limitations HENMT: Head: normal to inspection and normocephalic Ears: external ears normal, TM's normal bilaterally, mastoids normal and Abnormal EAC present Face/Nose/Sinus: sinus tenderness Face and sinus: normal facial exam Mouth: Yes Normal oral and palatal mucosa present, Yes oropharynx normal and Yes moist mucous membranes Throat: posterior oropharynx normal, tonsils normal, uvula midline and no uvular edema Eyes: General: appearance normal, both eyes and all related structures Sclera: sclerae normal Pupils: Equal, round and reactive pupils present C
== END 2023-09-02 13:05 | disposition home or self-care (01) ==
PROVIDERS: Emergency Provider Registered Nurse
DX: J20.9 Acute bronchitis, unspecified (principal); F17.210 Nicotine dependence, cigarettes, uncomplicated; M19.90 Unspecified osteoarthritis, unspecified site; E78.00 Pure hypercholesterolemia, unspecified; M32.9 Systemic lupus erythematosus, unspecified; F41.9 Anxiety disorder, unspecified; F32.A Depression, unspecified; Z79.82 Long term (current) use of aspirin
CPT/HCPCS: 99213; G0463

== ENCOUNTER 2024-01-01 11:26 | Emergency (ER) | payer OTHER, SELFPAY ==
[2024-01-01 11:43] VITALS: BP 134/89; PULSE 84; RESP 16; TEMP 36.9; O2SAT 97
--- NOTE | 2024-01-01 12:47 | ED.URI ---
HPI - URI/Sore Throat General Chief Complaint: Upper Respiratory Infection Stated Complaint: Congestion/Sore Throat/Cough Time Seen by Provider: 01/01/24 12:15 Source: patient, RN notes reviewed and old records reviewed Mode of arrival: ambulatory Limitations: no limitations History of Present Illness HPI Narrative: 58 year old female presents to [facility] care with complaints of sore throat, cough, congestion, nasal congestion with drainage, headache,ear pain, for the past week duration. Patient reports that her cough is deep and she has been taking Mucinex, NyQuil, Robitussin, and some Benadryl for her symptoms. Patient denies any acute shortness of breath with SAO2 97% on room air and no tachypnea or retractions noted. Patient has long history of tobacco abuse and has Lupus. MD elicited complaint: cough, sore throat, rhinorrhea and nasal congestion Pertinent past history: immunosuppression and other (tobacco abuse) Onset (ago): week(s) (1) Consistency: constant Severity: moderate Description of mucous: clear and yellow (light) Able to tolerate fluids by mouth: Yes Exacerbating factors: supine positioning Treatments prior to arrival: ibuprofen and other (Benadryl, Mucinex, Robitussin cough syrup,NyQuil) Related Data Home Medications Medication Instructions Recorded Confirmed metoprolol succinate 25 mg 25 mg PO DAILY 03/09/21 09/02/23 tablet,extended release 24 hr aspirin 81 mg chewable tablet 81 mg PO DAILY 09/04/22 09/02/23 Allergies Allergy/AdvReac Type Severity Reaction Status Date / Time Penicillins Allergy Intermediate Unknown Verified 09/02/23 12:49 Sulfa (Sulfonamide Allergy Unknown EXACERBATION Verified 09/02/23 12:49 Antibiotics) OF LUPUS Review of Systems Review of Systems: CONSTITUTIONAL:Reports malaise, no chills, sweats, or fever. EYES: Denies visual changes, redness, or discharge. ENT: Reports rhinorrhea, congestion, sinus pain, otalgia and sore throat. CARDIOVASCULAR: Denies chest pain, palpitations, or edema. RESPIRATORY: Reports cough.? Denies dyspnea.harsh productive cough noted GASTROINTESTINAL: Denies abdominal pain, nausea, vomiting, diarrhea SKIN: Denies rash or itching. MUSCULOSKELETAL: Denies myalgia. NEUROLOGIC:Reports headache. All systems reviewed & are unremarkable except as noted in HPI and below PMFSH Past Medical History Medical History (Updated 01/03/24 @ 09:07 by Felicia Alvarado NP) Anxiety Arthritis Chronic back pain Depression FH: cholecystectomy LEIDA (generalized anxiety disorder) Hypercholesterolemia Hyperlipidemia Lupus Nicotine dependence Postmenopausal Surgical History Surgical History (Updated 01/03/24 @ 09:27 by Felicia Alvarado NP) H/O spinal fusion L4-5S1 with hardware H/O tubal ligation History of aorto-femoral bypass with stent History of appendectomy Hx of cholecystectomy Previous section Family History Family History Other Family history of arthritis Hypertension Social History Social History Smoking packs per day: 1 Smoking cigarettes per day: 20.0 Years smoked: 37 Smoking pack-years: 37.00 Smoking status: Current every day smoker Tobacco type: cigarettes Alcohol intake: current Drinks per week: 1 Substance use: never Substance use type: does not use Living arrangements: with family Gender identity (if verbalized by the patient): Male Spiritual care concerns: No Comments At time of signature, agree with nursing past medical, surgical, social and family history. There is no relevant family history pertinent to the presenting complaint Exam Narrative: GENERAL: Well-appearing, well-nourished, and in no acute distress. HEAD: Normocephalic EYES: PERRLA, conjunctivae clear ENT: Nares clear, turbinates edematous and erythematous, clear to yellow discharge,
== END 2024-01-01 13:07 | disposition home or self-care (01) ==
PROVIDERS: Emergency Provider Registered Nurse
DX: J20.9 Acute bronchitis, unspecified (principal); F17.210 Nicotine dependence, cigarettes, uncomplicated; M19.90 Unspecified osteoarthritis, unspecified site; E78.00 Pure hypercholesterolemia, unspecified; E78.5 Hyperlipidemia, unspecified; Z79.82 Long term (current) use of aspirin; Z95.828 Presence of other vascular implants and grafts
CPT/HCPCS: 99213; G0463

== ENCOUNTER 2024-02-21 13:56 | Outpatient (CLI) | payer OTHER, SELFPAY ==
--- NOTE | ~2024-02-21 | MM_ITS ---
EXAMINATION: MM screening [place] BI w william HISTORY: Screening TECHNIQUE: Craniocaudal and mediolateral oblique 3-D tomosynthesis images were obtained and synthetic 2-D images were generated. CAD analysis was submitted and interpreted. COMPARISON: Comparison to multiple prior studies sequentially, with oldest reviewed study dated 10/16. BREAST PARENCHYMAL COMPOSITION: Not dense: There are scattered areas of fibroglandular density. FINDINGS: There is no evidence of suspicious mass, calcification, or architectural distortion to sugg est malignancy in either breast. There has been no suspicious interval change. IMPRESSION: 1. No mammographic evidence of malignancy. 2. Recommend routine screening mammography in one year. BI-RADS Category 1: Negative Reviewed, dictated and finalized at location B.
== END 2024-02-21 13:57 | disposition home or self-care (01) ==
LOC: CHSIMG 13:58
PROVIDERS: PCP Nurse Practitioner Family; Visit Provider Obstetrics & Gynecology Gynecology
DX: Z12.31 Encounter for screening mammogram for malignant neoplasm of breast (principal)
CPT/HCPCS: 77063; 77067

== ENCOUNTER 2024-06-02 11:46 | Emergency (ER) | payer OTHER, SELFPAY ==
--- NOTE | ~2024-06-02 | XR_ITS ---
Right Knee Technique: AP, lateral, and sunrise views were obtained. Clinical History: Pain Findings: No fracture or dislocation is seen. Osseous alignment is anatomic. Evidence of old [place] chlatter's disease. Joint spaces are preserved without degenerative or erosive change. There is prepa tellar soft tissue edema/thickening. No joint effusion is seen. Impression: Prepatellar soft tissue edema/thickening. Correlate for bursitis or posttraumatic change. No acute fracture or dislocation. Evidence of old [place]-Schlatter's disease. Reviewed, dictated and finalized at location . Impression: Prepatellar soft tissue edema/thickening. Correlate for bursitis or posttraumat ic change. No acute fracture or dislocation. Evidence of old [place]-Schlatter's disease.
[2024-06-02 11:46] VITALS: BP 140/97; PULSE 80; RESP 16; TEMP 36.7; O2SAT 96
--- NOTE | 2024-06-02 11:52 | ED.LOWEXIN ---
HPI - Extremity Injury (Lower) General Chief Complaint: Extremity Injury, Lower Stated Complaint: right knee pain Source: patient Mode of arrival: ambulatory Limitations: no limitations History of Present Illness HPI Narrative: patient is a 58-year-old female with right knee pain after falling 3 weeks ago. This was a ground level fall and landed on her knee in the yard. The pain got better and now it is worse with some swelling of the anterior knee. MD complaint: knee injury Onset (ago): week(s) (3) Injury: Right: knee ( Anterior knee swelling) Type of Injury: blunt Place: home and street/outdoors Severity: moderate Severity scale (1-10): 5 Relieving factors: immobilization Exacerbating factors: weight bearing, movement and palpation Context: fall and direct blow Associated symptoms: swelling and able to partially bear weight Other symptoms: none Treatments prior to arrival: cold therapy Related Data Home Medications Medication Instructions Recorded Confirmed metoprolol succinate 25 mg 25 mg PO DAILY 03/09/21 09/02/23 tablet,extended release 24 hr aspirin 81 mg chewable tablet 81 mg PO DAILY 09/04/22 09/02/23 Allergies Allergy/AdvReac Type Severity Reaction Status Date / Time Penicillins Allergy Intermediate Unknown Verified 06/02/24 12:16 Sulfa (Sulfonamide Allergy Unknown EXACERBATION Verified 06/02/24 12:16 Antibiotics) OF LUPUS Review of Systems Review of Systems: All systems reviewed & are unremarkable except as noted in HPI and below Constitutional: Constitutional: Reports no additional constitutional complaints Eyes: Eyes: Reports no additional eye complaints ENT: Reports system reviewed and no additional complaints, except as documented Cardiovascular: Cardiovascular: Reports no additional cardiovascular complaints Respiratory: Respiratory: Reports no additional respiratory complaints Gastrointestinal: Gastrointestinal: Reports no additional gastrointestinal complaints Genitourinary: Genitourinary: Reports no additional female genitourinary complaints Musculoskeletal: Musculoskeletal: Reports no additional musculoskeletal complaints Integumentary/Breasts: Skin/Breast: Reports system reviewed and no additional complaints, except as docu Neurologic: Reports system reviewed and no additional complaints, except as documented Psychiatric: Psychiatric: Reports no additional psychiatric complaints Endocrine: Endocrine: Reports no additional endocrine complaints Hematologic/Lymphatic: Hematologic/Lymphatic: Reports no additional hematologic/lymphatic complaints Allergic/Immunologic: Allergic/Immunologic: Reports no additional allergic/immunologic complaints PMFSH Past Medical History Medical History Anxiety Arthritis Chronic back pain Depression FH: cholecystectomy LEIDA (generalized anxiety disorder) Hypercholesterolemia Hyperlipidemia Lupus Nicotine dependence Postmenopausal Surgical History Surgical History H/O spinal fusion L4-5S1 with hardware H/O tubal ligation History of aorto-femoral bypass with stent History of appendectomy Hx of cholecystectomy Previous section Family History Family History Other Family history of arthritis Hypertension Social History Social History Smoking packs per day: 1 Smoking cigarettes per day: 20.0 Years smoked: 37 Smoking pack-years: 37.00 Smoking status: Current every day smoker Tobacco type: cigarettes Alcohol intake: current Drinks per week: 1 Substance use: never Substance use type: does not use Living arrangements: with family Gender identity (if verbalized by the patient): Male Spiritual care concerns: No Exam Const: General: healthy appearing Nutritional Appearan
[2024-06-02 11:55] VITALS: BP 140/97; PULSE 80; RESP 16; TEMP 36.7; O2SAT 96
== END 2024-06-02 12:57 | disposition home or self-care (01) ==
PROVIDERS: Emergency Provider Emergency Medicine; PCP Nurse Practitioner Family
DX: M70.41 Prepatellar bursitis, right knee (principal); E78.5 Hyperlipidemia, unspecified; F17.210 Nicotine dependence, cigarettes, uncomplicated; W19.XXXA Unspecified fall, initial encounter
CPT/HCPCS: 73564; 99283

== ENCOUNTER 2024-06-13 16:34 | Outpatient (NON) | payer OTHER, SELFPAY | END 2024-06-13 16:35 | disposition home or self-care (01) | LOC: CHSLAB 16:35 | PROVIDERS: Visit Provider Nurse Practitioner Family | DX: M70.51 Other bursitis of knee, right knee (principal); Z98.890 Other specified postprocedural states | CPT/HCPCS: 87070; 87075; 87205 ==

== ENCOUNTER 2024-06-19 13:31 | Outpatient (RCR) | payer OTHER, SELFPAY ==
--- NOTE | 2024-06-19 14:38 | PTOPEVAL1 ---
Assessment and note entered by Lawrence Erwin Evaluation Information Diagnosis bursitis, right knee M70.51 ICD-10 Condition Codes (PT) M25.561 Onset 06/02/24 Subjective Information Pt. reports that she fell onto the right knee on . She states that she had pain, but no immediate swelling. Around 06/02/24 started noticing some swelling around the knee. She states that pain has not worsened, just worsening swelling. She reports that she underwent x-ray and no broken bones. She states that pain is increased with walking and standing. She has little pain at rest. she reports that stairs are very difficult. She states that she has grandchildren and is difficult to interact with them due to pain. She states that she notices pressure in the knee with described extension. She reports no difficulty sleeping at night. She denies any previous hx of knee problems. She reports she could stand for hours before the injury and now has difficulty with standing. She reports that her goal is to decrease her pain and decrease her swelling. Reported Pain Level Pain Score 5: Self Report Assessment PT Clinical Summary Pt. demonstrates no deficits in strength, gait or ROM on this date. Notable hematoma at the area of the anterior right knee, however does not appear to limit functional significantly. Provided pt. with tubigrip stockinette to apply compression at the right knee. At this time she has been provided a HEP and is independent with all exercise. She will be discharged from our care at this time. Plan of Care PT Services Indicated No Treatment Frequency and D/C from PT to an independent HEP. Pt. has been Duration instructed in use of compression garments. These treatments will address the objective and functional deficits as defined above. The patient will be advanced safely and appropriately in order for the patient to progress towards his/her prior level of function. Additional exercises will be introduced and as well as a comprehensive home exercise program upon discharge, if needed, ?to ensure carryover of functional gains achieved in the clinic. This treatment plan has been reviewed and agreement upon by the patient.
== END 2024-06-19 14:49 | disposition home or self-care (01) ==
LOC: CHSPT 13:31
PROVIDERS: Visit Provider Nurse Practitioner Family
DX: M70.51 Other bursitis of knee, right knee (principal)
CPT/HCPCS: 97110; 97161

== ENCOUNTER 2025-08-17 12:42 | Emergency (ER) | payer OTHER, SELFPAY ==
--- NOTE | ~2025-08-17 | CT_ITS ---
CT HEAD NON-CONTRAST CT C-SPINE Clinical History: Fall, anterior head injury/ cervical pain x1 day Comparison: None Technique: Unenhanced axial images skull base to vertex. Coronal, sagittal reformats. Axial images thoracic inlet to skull base. Sagittal and coronal reformats. CT images acquired with automatic exposure control for dose reduction DLP: 681 mGy-cm Findings: Head: White matter changes, typically chronic microvascular ischemic disease. Sulci, ventricles: Unremarkable. No intracerebral hemorrhage. No evidence acute territorial infarct. No mass effect, midline shift, intra-/extra-axial fluid collection. Bony calvarium intact. Visualized paranasal sinuses: Clear. Mastoid air cells: Clear. C-spine: No acute fracture. Straightening of normal cervical lordosis. Grade 1 anterolisthesis of C2 on 3. Moderate degenerative changes and disc disease. Prevertebral soft tissues within normal limits. Visualized lung apices: Clear. Visualized thyroid: Unremarkable. No enlarged cervical nodes. IMPRESSION: HEAD: 1. No acute intracranial findings. C-SPINE: 1. No acute fracture. Reviewed, dictated and finalized at location [employer]. [employer] IMPRESSION: HEAD: 1. No acute intracranial findings. C-SPINE: 1. No acute fracture.
[2025-08-17 12:43] VITALS: BP 143/66; PULSE 87; RESP 18; TEMP 36.6; O2SAT 94
--- NOTE | 2025-08-17 12:44 | ED.NECK ---
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 She hit her front of her forehead and has residual pain of her neck. No loss of consciousness. No other neurological complaints at this time. MD complaint: neck pain and neck injury Onset (ago): day(s) (Two) Place: work Radiation: head (Neck) Severity: moderate Severity scale (1-10): 4 Quality: sharp, spasming and throbbing Duration: constant Relieving factors: immobilization Exacerbating factors: movement of neck Context: fall Associated symptoms: headache and other (Neck pain) Treatments prior to arrival: none Related Data Home Medications ?Medication ?Instructions ?Recorded ?Confirmed ?Last Taken ?Type aspirin 81 mg chewable tablet 81 mg PO DAILY 09/04/22 07/01/24 Unknown History Allergies Allergy/AdvReac Type Severity Reaction Status Date / Time Penicillins Allergy Intermediate Unknown Verified 08/17/25 12:44 Sulfa (Sulfonamide Allergy Unknown EXACERBATION Verified 08/17/25 12:44 Antibiotics) OF LUPUS Review of Systems Review of Systems: All systems reviewed & are unremarkable except as noted in HPI and below Constitutional: Constitutional: Reports no additional constitutional complaints Eyes: Eyes: Reports no additional eye complaints ENT: Reports system reviewed and no additional complaints, except as documented Cardiovascular: Cardiovascular: Reports no additional cardiovascular complaints Respiratory: Respiratory: Reports no additional respiratory complaints Gastrointestinal: Gastrointestinal: Reports no additional gastrointestinal complaints Genitourinary: Genitourinary: Reports no additional female genitourinary complaints Musculoskeletal: Musculoskeletal: Reports no additional musculoskeletal complaints Integumentary/Breasts: Skin/Breast: Reports system reviewed and no additional complaints, except as docu Neurologic: Reports system reviewed and no additional complaints, except as documented Psychiatric: Psychiatric: Reports no additional psychiatric complaints Endocrine: Endocrine: Reports no additional endocrine complaints Hematologic/Lymphatic: Hematologic/Lymphatic: Reports no additional hematologic/lymphatic complaints Allergic/Immunologic: Allergic/Immunologic: Reports no additional allergic/immunologic complaints PMFSH Past Medical History Medical History 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 LEIDA (generalized anxiety disorder) Nicotine dependence Hyperlipidemia FH: cholecystectomy Anxiety Depression Chronic back pain Lupus Arthritis Postmenopausal Hypercholesterolemia Surgical History Surgical History History of aorto-femoral bypass with stent Hx of cholecystectomy H/O spinal fusion L4-5S1 with hardware Previous section H/O tubal ligation History of appendectomy Family History Family History Other Family history of arthritis Hypertension Social History Social History Smoking packs per day: 1 Smoking cigarettes per day: 20.0 Years smoked: 37 Smoking pack-years: 37.00 Smoking status: Current every day smoker Tobacco type: cigarettes Alcohol intake: current Drinks per week: 1 Substance use: never Substance use type: does not use Living arrangements: with family Gender identity (if verbalized by the patient): Male Spiritual care concerns: No Exam Const: General: healthy appearing Nutritional Appearance: well nourished Orientation/consciousness: patient oriented x3 Limitations: no limitations HENMT: Head: normal to inspection Ears: external ears normal Face/Nose/Sinus: Normal external nose present Eyes: Conjunctivae: conjunctivae normal Pupils: Equal, round and reactive pupils present EOM: EOMs intact bilaterally Neck: Neck: normal visual inspection Chest: Chest palpation & inspection: normal inspection of the chest Resp: Effort & Inspection: normal respiratory effort and not labored Auscultation: clear to auscultation bilaterally and no crackles Cardio: Rate: regular rate Rhythm: regular rhythm Heart sounds: no murmurs GI: Inspection: non-distended GI Palp: Yes Soft to palpation and No Tenderness to palpation present (GI) Auscultation: normal bowel sounds : General: Yes bladder normal to palpation Back/Spine/Pelvis: Back: no CVA tenderness Skin: General skin exam: normal color Rashes: no rashes Wounds: no wounds Neuro: General: patient oriented x3, moves all extremities and no meningeal signs Cranial nerves: Yes Nystagmus not present Speech: normal speech Gait exam (Neuro): Normal gait present Extrem: General: normal to inspection Psych: Mental Status: mental status grossly normal Affect: normal affect Attitude: cooperative Course Vital Signs Vital signs: Vital Signs Temperature 36.6 C 08/17/25 12:43 Pulse Rate 87 08/17/25 12:43 Respiratory Rate 18 08/17/25 12:43 Blood Pressure 143/66 H 08/17/25 12:43 Pulse Oximetry 94 08/17/25 12:43 Oxygen Delivery Room Air 08/17/25 12:43 Temperature 36.6 C 08/17/25 12:43 Pulse Rate 87 08/17/25 12:43 Respiratory Rate 18 08/17/25 12:43 Blood Pressure 143/66 H 08/17/25 12:43 Pulse Oximetry 94 08/17/25 12:43 Oxygen Delivery Room Air 08/17/25 12:43 MDM - Neck Pain/Injury MDM Narrative Medical decision making narrative: Patient is a 60-year-old female with a head injury and neck pain residual after the fall yesterday. CT scan of the head and neck. No concerns for facial bone injury. Imaging Data Attestation: I personally reviewed and interpreted this imaging study as follows: Radiologist's impression: CT scan of the head was negative for acute process CT scan of the cervical spine was negative for acute process Discharge Plan Discharge Clinical Impression: Acute neck sprain Qualifiers: Encounter type: initial encounter Qualified Code(s): S13.9XXA - Sprain of joints and ligaments of unspecified parts of neck, initial encounter Head injury Qualifiers: Encounter type: initial encounter Qualified Code(s): S09.90XA - Unspecified injury of head, initial encounter Patient Disposition: Home Condition: Stable Instructions: Cervical Sprain (ED) Patient Language: Icelandic Prescriptions: New orphenadrine citrate 100 mg tablet extended release 100 mg PO BID PRN (Reason: pain) Qty: 20 0RF No Action aspirin 81 mg Tablet,Chewable 81 mg PO DAILY albuterol sulfate 90 mcg/actuation HFA aerosol inhaler 2 puff inhalation QID PRN (Reason: shortness of breath or wheezing) Qty: 8.5 0RF rosuvastatin 10 mg tablet See Rx Instructions .ROUTE .COMPLEX Qty: 90 3RF Dose Instruction: TAKE ONE TABLET BY MOUTH DAILY Rx Instructions: TAKE ONE TABLET BY MOUTH DAILY metoprolol succinate 50 mg tablet extended release 24 hr See Rx Instructions .ROUTE .COMPLEX Qty: 180 0RF Dose Instruction: TAKE ONE TABLET BY MOUTH DAILY Rx Instructions: TAKE ONE TABLET BY MOUTH DAILY hydroxychloroquine 200 mg tablet See Rx Instructions .ROUTE .COMPLEX Qty: 180 0RF Dose Instruction: TAKE ONE TABLET BY MOUTH TWICE A DAY Rx Instructions: TAKE ONE TABLET BY MOUTH TWICE A DAY escitalopram oxalate 10 mg tablet See Rx Instructions .ROUTE .COMPLEX Qty: 90 0RF Dose Instruction: TAKE ONE TABLET BY MOUTH DAILY -NEEDS APPOINTMENT- Rx Instructions: TAKE ONE TABLET BY MOUTH DAILY Follow-up/Referrals: Sue Shea NP [Primary Care Provider, Family Practice] Stand Alone Forms: Work/School Release IP Time of Disposition: 13:38
[2025-08-17 13:43] VITALS: BP 135/75; PULSE 80; RESP 16; TEMP 36.7; O2SAT 96
== END 2025-08-17 13:43 | disposition home or self-care (01) ==
PROVIDERS: Emergency Provider Emergency Medicine; PCP Nurse Practitioner Family
DX: S13.9XXA Sprain of joints and ligaments of unspecified parts of neck, initial encounter (principal); S09.90XA Unspecified injury of head, initial encounter; E78.5 Hyperlipidemia, unspecified; F17.210 Nicotine dependence, cigarettes, uncomplicated; W01.0XXA Fall on same level from slipping, tripping and stumbling without subsequent striking against object, initial encounter
CPT/HCPCS: 70450; 72125; 99284

== ENCOUNTER 2025-08-25 12:22 | Emergency (ER) | payer OTHER, SELFPAY ==
[2025-08-25 12:26] VITALS: BP 133/80; PULSE 102; RESP 16; TEMP 36.6; O2SAT 97
--- NOTE | 2025-08-25 12:53 | ED.URI ---
HPI - URI/Sore Throat General Chief Complaint: Upper Respiratory Infection Stated Complaint: Chest Congestion/Nasal Congestion/Body Aches Time Seen by Provider: 08/25/25 12:40 Source: patient, RN notes reviewed and old records reviewed Mode of arrival: ambulatory Limitations: no limitations History of Present Illness HPI Narrative: 60 year old female who presents to [facility] care with complaints of having chest congestion, nasal congestion, pressure to ears. and having body aches for the past 3 days. Patient reports that she has been taking NyQuil for her symptoms. 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 Patient reports that she has not had any known fevers or chill or sweats, denies any nausea or vomiting or diarrhea. MD elicited complaint: cough, rhinorrhea, nasal congestion, sinus pain and other (body aches, fatigue) Pertinent past history: immunosuppression Onset (ago): day(s) (3) Severity: moderate Description of mucous: clear and yellow (tinged) Able to tolerate fluids by mouth: Yes Treatments prior to arrival: other (NyQuil) Related Data Home Medications ?Medication ?Instructions ?Recorded ?Confirmed ?Last Taken ?Type aspirin 81 mg chewable tablet 81 mg PO DAILY 09/04/22 07/01/24 Unknown History Allergies Allergy/AdvReac Type Severity Reaction Status Date / Time Penicillins Allergy Intermediate Unknown Verified 08/25/25 12:30 Sulfa (Sulfonamide Allergy Unknown EXACERBATION Verified 08/25/25 12:30 Antibiotics) OF LUPUS Review of Systems Review of Systems: CONSTITUTIONAL: reports malaise, no chills, sweats, or fever. EYES: Denies visual changes, redness, or discharge. ENT: Reports rhinorrhea, congestion, sinus pain, otalgia and no sore throat. CARDIOVASCULAR: Denies chest pain, palpitations, or edema. RESPIRATORY: Reports cough.? Denies dyspnea. GASTROINTESTINAL: Denies abdominal pain, nausea, vomiting, diarrhea SKIN: Denies rash or itching. MUSCULOSKELETAL: reports myalgia. NEUROLOGIC: Denies headache. 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 LEIDA (generalized anxiety disorder) Nicotine dependence Hyperlipidemia FH: cholecystectomy Anxiety Depression Chronic back pain Lupus Arthritis Postmenopausal Hypercholesterolemia Surgical History Surgical History History of aorto-femoral bypass with stent Hx of cholecystectomy H/O spinal fusion L4-5S1 with hardware Previous section H/O tubal ligation History of appendectomy Family History Family History Other Family history of arthritis Hypertension Social History Social History Smoking packs per day: 1 Smoking cigarettes per day: 20.0 Years smoked: 37 Smoking pack-years: 37.00 Smoking status: Current every day smoker Tobacco type: cigarettes Alcohol intake: current Drinks per week: 1 Substance use: never Substance use type: does not use Living arrangements: with family Gender identity (if verbalized by the patient): Male Spiritual care concerns: No Comments At time of signature, agree with nursing past medical, surgical, social and family history. There is no relevant family history pertinent to the presenting complaint Exam Narrative: GENERAL: Well-appearing, well-nourished, and in no acute distress. HEAD: Normocephalic EYES: PERRLA, conjunctivae clear ENT: Nares clear, turbinates edematous and erythematous, clearto light yellow discharge, sinus pressure. Mucous membranes moist. TM pearly casillas with dull light reflex bilaterally; no tragal tenderness. Oropharynx erythematous without lesions. Tonsils not enlarged and without exudate, no drooling, no hoarseness, no trismus, uvula midline, post nasal drainge. NECK: Supple. No lymphadenopathy CHEST: Clear to auscultation, breath sounds equal. No wheezing, rhonchi, rales, or stridor. No respiratory distress, speaks in full sentences.cough which is productive at times. SAO2 97% HEART: Regular rate and rhythm. No murmur heard. SKIN: Warm, dry, no rash. NEURO: Alert and oriented x3. PSYCH: Normal mood and affect Course Course Emergency Course: Patient is aware of diagnosis, understands and agrees to treatment plan.? Anticipatory guidance given.? Patient agrees to follow-up as directed and is aware of reasons to seek care at the emergency department. Portions of this record may have been created with voice recognition software Level of Care: Express Care Visit Vital Signs Vital signs: Vital Signs Temperature 36.6 C 08/25/25 12:26 Pulse Rate 102 H 08/25/25 12:26 Respiratory Rate 16 08/25/25 12:26 Blood Pressure 133/80 08/25/25 12:26 Pulse Oximetry 97 08/25/25 12:26 Oxygen Delivery Room Air 08/25/25 12:26 Temperature 36.6 C 08/25/25 12:26 Pulse Rate 102 H 08/25/25 12:26 Respiratory Rate 16 08/25/25 12:26 Blood Pressure 133/80 08/25/25 12:26 Pulse Oximetry 97 08/25/25 12:26 Oxygen Delivery Room Air 08/25/25 12:26 Reviewed MDM - URI/Sore Throat MDM Narrative Medical decision making narrative: Differential diagnosis considered: Malik virus, strep pharyngitis, allergic rhinitis, upper respiratory tract infection, sinusitis, rhinosinusitis, nasopharyngitis. viral pharyngitis, otitis media, otitis externa, pneumonia, bronchitis, viral cough syndrome, viral syndrome, and influenza.? Exam findings show no acute concerns or changes; patient is non-toxic appearing and is in no distress.? Patient is appropriate for outpatient treatment and follow-up. Differential Diagnosis Differential diagnosis: Likely upper respiratory infection, sinusitis, viral infection, influenza, pharyngitis and other (strep pharyngitis, COVID) Medical Records Attestation: I reviewed the patient's medical records. Lab Data Attestation: I reviewed the patient's lab results. Lab results narrative: strep screen negative, culture sent, Influenza A & B negative, covid antigen negative Labs: Lab Results 08/25/25 Range/Units 13:04 POC Influenza A Ag Negative (Negative) POC Influenza B Ag Negative (Negative) POC SARS CoV-2 Ag Negative (Negative) POC Grp A Strep Screen Negative (Negative) reviewed Critical Care Time Critical Care Time Critical Care Time: No Discharge Plan Discharge Clinical Impression: URI, acute Cough Qualifiers: Cough type: acute Qualified Code(s): R05.1 - Acute cough Patient Disposition: Home Condition: Stable Instructions: Antibiotic Form, Upper Respiratory Infection (ED) Additional Instructions: Increase fluids especially juices and water [id number] cough and cold medicine of your choice for your symptoms Zyrtec Claritin or Chanell daily include Coricidin brand decongestant Continue your inhaler/nebulizer as directed Steroids as directed--take with food heat to the face 20-30 minutes 4-6 times a day for pain Salt water gargles, throat lozenges or throat sprays as desired Antibiotic as directed--finished the medication If your symptoms persist, change or worsen significantly before you can contact your personal physician then please, without delay, go to the emergency department for further evaluation. Follow-up with PCP in 7-10 days or sooner if needed Follow up with PCP soon in regards to your blood pressure which is elevated above threshold for referral. Blood pressure above 120/80 may indicate pre-hypertension. 133/80 Patient Language: Chinese Prescriptions: New doxycycline monohydrate 100 mg capsule 100 mg PO BID Qty: 14 0RF prednisone 20 mg tablet 20 mg PO BID Qty: 10 0RF Rx Instructions: taker am and early pm with food No Action orphenadrine citrate 100 mg tablet extended release 100 mg PO BID PRN (Reason: pain) Qty: 20 0RF aspirin 81 mg Tablet,Chewable 81 mg PO DAILY albuterol sulfate 90 mcg/actuation HFA aerosol inhaler 2 puff inhalation QID PRN (Reason: shortness of breath or wheezing) Qty: 8.5 0RF rosuvastatin 10 mg tablet See Rx Instructions .ROUTE .COMPLEX Qty: 90 3RF Dose Instruction: TAKE ONE TABLET BY MOUTH DAILY Rx Instructions: TAKE ONE TABLET BY MOUTH DAILY metoprolol succinate 50 mg tablet extended release 24 hr See Rx Instructions .ROUTE .COMPLEX Qty: 180 0RF Dose Instruction: TAKE ONE TABLET BY MOUTH DAILY Rx Instructions: TAKE ONE TABLET BY MOUTH DAILY hydroxychloroquine 200 mg tablet See Rx Instructions .ROUTE .COMPLEX Qty: 180 0RF Dose Instruction: TAKE ONE TABLET BY MOUTH TWICE A DAY Rx Instructions: TAKE ONE TABLET BY MOUTH TWICE A DAY escitalopram oxalate 10 mg tablet See Rx Instructions .ROUTE .COMPLEX Qty: 30 0RF Dose Instruction: TAKE 1 TABLET BY MOUTH EVERY DAY Rx Instructions: TAKE 1 TABLET BY MOUTH EVERY DAY Follow-up/Referrals: UNKNOWN,DOCTOR [Primary Care Provider] Time of Disposition: 13:28 Quality Angela Coma Scale Eyes: Open Verbal: Oriented and Alert Motor: Follows Commands [place] Coma Total Score: 15
[2025-08-25 13:20] LABS: EDCOVIDSCREEN Negative (Negative); EDINFLUASCREEN Negative (Negative); EDINFLUBSCREEN Negative (Negative); EDSTREPNEGPOS1 Negative (Negative)
== END 2025-08-25 13:37 | disposition home or self-care (01) ==
PROVIDERS: Emergency Provider Registered Nurse
DX: J06.9 Acute upper respiratory infection, unspecified (principal); R05.1 Acute cough; Z20.822 Contact with and (suspected) exposure to COVID-19; F17.210 Nicotine dependence, cigarettes, uncomplicated; D84.9 Immunodeficiency, unspecified; E78.00 Pure hypercholesterolemia, unspecified; F41.1 Generalized anxiety disorder; F32.A Depression, unspecified; M19.90 Unspecified osteoarthritis, unspecified site; Z95.820 Peripheral vascular angioplasty status with implants and grafts; Z79.82 Long term (current) use of aspirin
CPT/HCPCS: 87081; 87426; 87804; 87880; 99213; G0463

== ENCOUNTER 2025-09-04 09:43 | Outpatient (CLI) | payer OTHER, SELFPAY ==
[2025-09-04 10:01] LABS: Hematocrit 46.8 % (35.0-49.0); Hemoglobin 15.9 g/dL (12.0-15.0); Immature Granulocyte Percent A 0.1 % (0.0-0.0); Lymphocytes Absolute Auto 3.51 K/mm3 (1.10-4.50); Mean Corpuscular HGB Conc 34.0 g/dL (32-36); Mean Corpuscular Hemoglobin 31.8 pg (27.0-31.0); Mean Corpuscular Volume 93.6 fL (78.0-102.0); Nucleated Red Blood Cells Absolute Auto 0.00 K/mm3 (0.00-0.00); Nucleated Red Blood Cells Perc 0.0 % (0-0.0); Platelet Count Result 141 K/mm3 (150-420); Red Blood Count 5.00 M/mm3 (4.20-5.40); White Blood Count 8.7 K/mm3 (4.8-10.8)
[2025-09-04 11:32] LABS: Alanine Aminotransferase 27 U/L (6-35); Albumin Level 4.0 g/dL (3.5-5.1); Alkaline Phosphatase 78 U/L (38-126); Anion Gap 4 mmol/L (4-12); Aspartate Amino Transferase 31 U/L (14-36); Bilirubin,Total 0.6 mg/dL (0.2-1.3); Blood Urea Nitrogen 13 mg/dL (7-17); Calcium 9.7 mg/dL (8.4-10.2); Carbon Dioxide 28 mmol/L (22-30); Chloride 106 mmol/L (98-107); Cholesterol 144 mg/dL (0-200); Estimated Glomerular Filt Rate > 60; Glucose 106 mg/dL (65-110); HDL Direct 62 mg/dL; Osmolality Calculated 286 mOsm/kg (285-295); Potassium 3.9 mmol/L (3.4-5.0); Sodium 138 mmol/L (137-145); Total Protein 6.5 g/dL (6.3-8.2); Triglycerides 150 mg/dL (<150)
[2025-09-04 12:05] LABS: Thyroid Stimulating Hormone Reflex 3.560 uIU/mL (0.465-4.68)
== END 2025-09-04 09:44 | disposition home or self-care (01) ==
PROVIDERS: PCP Family Medicine; Visit Provider Family Medicine
DX: E03.9 Hypothyroidism, unspecified (principal); I10 Essential (primary) hypertension
CPT/HCPCS: 36415; 80053; 80061; 84443; 85025

== ENCOUNTER 2025-09-22 19:37 | Emergency (ER) | payer OTHER, SELFPAY ==
[2025-09-22 19:42] VITALS: BP 118/63; PULSE 46; RESP 20; TEMP 36.9; O2SAT 98
--- NOTE | 2025-09-22 20:02 | ED.URI ---
HPI - URI/Sore Throat General Chief Complaint: Upper Respiratory Infection Stated Complaint: Respiratory Problems Source: patient, RN notes reviewed and old records reviewed Mode of arrival: ambulatory Limitations: no limitations History of Present Illness MD elicited complaint: cough and sore throat Related Data Allergies Allergy/AdvReac Type Severity Reaction Status Date / Time Penicillins Allergy Intermediate Unknown Verified 09/22/25 19:47 Sulfa (Sulfonamide Allergy Unknown EXACERBATION Verified 09/22/25 19:47 Antibiotics) OF LUPUS Review of Systems Review of Systems: CONSTITUTIONAL: Denies malaise, chills, sweats, or fever. EYES: Denies visual changes, redness, or discharge. ENT: Reports rhinorrhea, congestion, sinus pain, otalgia and sore throat. CARDIOVASCULAR: Denies chest pain, palpitations, or edema. RESPIRATORY: Reports cough.? Denies dyspnea. GASTROINTESTINAL: Denies abdominal pain, nausea, vomiting, diarrhea SKIN: Denies rash or itching. MUSCULOSKELETAL: Denies myalgia. NEUROLOGIC: Denies headache. 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 LEIDA (generalized anxiety disorder) Nicotine dependence Hyperlipidemia FH: cholecystectomy Anxiety Depression Chronic back pain Lupus Arthritis Postmenopausal Hypercholesterolemia Surgical History Surgical History History of aorto-femoral bypass with stent Hx of cholecystectomy H/O spinal fusion L4-5S1 with hardware Previous section H/O tubal ligation History of appendectomy Family History Family History Other Family history of arthritis Hypertension Social History Social History Smoking packs per day: 1 Smoking cigarettes per day: 20.0 Years smoked: 37 Smoking pack-years: 37.00 Smoking status: Current every day smoker Tobacco type: cigarettes Alcohol intake: current Drinks per week: 1 Substance use: never Substance use type: does not use Living arrangements: with family Gender identity (if verbalized by the patient): Male Spiritual care concerns: No Comments At time of signature, agree with nursing past medical, surgical, social and family history. There is no relevant family history pertinent to the presenting complaint Exam Narrative: GENERAL: Well-appearing, well-nourished, and in no acute distress. HEAD: Normocephalic EYES: PERRLA, conjunctivae clear ENT: Nares clear, turbinates edematous and erythematous, clear discharge. Mucous membranes moist. TM pearly casillas with dull light reflex bilaterally; no tragal tenderness. Oropharynx erythematous without lesions. Tonsils not enlarged and without exudate, no drooling, no hoarseness, no trismus, uvula midline. NECK: Supple. No lymphadenopathy CHEST: Clear to auscultation, breath sounds equal. No wheezing, rhonchi, rales, or stridor. No respiratory distress, speaks in full sentences. HEART: Regular rate and rhythm. No murmur heard. SKIN: Warm, dry, no rash. NEURO: Alert and oriented x3. PSYCH: Normal mood and affect Course Course Level of Care: Express Care Visit Vital Signs Vital signs: Vital Signs Temperature 36.9 C 09/22/25 19:42 Pulse Rate 46 L 09/22/25 19:42 Respiratory Rate 20 09/22/25 19:42 Blood Pressure 118/63 09/22/25 19:42 Pulse Oximetry 98 09/22/25 19:42 Oxygen Delivery Room Air 09/22/25 19:42 Temperature 36.9 C 09/22/25 19:42 Pulse Rate 46 L 09/22/25 19:42 Respiratory Rate 20 09/22/25 19:42 Blood Pressure 118/63 09/22/25 19:42 Pulse Oximetry 98 09/22/25 19:42 Oxygen Delivery Room Air 09/22/25 19:42 [facility] Lab Data [facility] Lab Attestation statement: I personally reviewed the patient's lab results. Lab results narrative: COVID antigen negative, influenza A negative influenza B negative Critical Care Time Critical Care Time Critical Care Time: No Discharge Plan Discharge Patient Disposition: Home Condition: Stable Instructions: Antibiotic Form Patient Language: Serbian Prescriptions: No Action albuterol sulfate 90 mcg/actuation HFA aerosol inhaler 2 puff inhalation QID PRN (Reason: shortness of breath or wheezing) Qty: 8.5 0RF aspirin 81 mg tablet,chewable 81 mg PO DAILY Qty: 90 0RF escitalopram oxalate 10 mg tablet See Rx Instructions .ROUTE .COMPLEX Qty: 90 3RF Dose Instruction: TAKE 1 TABLET BY MOUTH EVERY DAY Rx Instructions: TAKE 1 TABLET BY MOUTH EVERY DAY hydroxychloroquine 200 mg tablet See Rx Instructions .ROUTE .COMPLEX Qty: 180 3RF Dose Instruction: TAKE ONE TABLET BY MOUTH TWICE A DAY Rx Instructions: TAKE ONE TABLET BY MOUTH TWICE A DAY metoprolol succinate 50 mg tablet extended release 24 hr See Rx Instructions .ROUTE .COMPLEX Qty: 180 3RF Dose Instruction: TAKE ONE TABLET BY MOUTH DAILY Rx Instructions: TAKE ONE TABLET BY MOUTH DAILY rosuvastatin 10 mg tablet See Rx Instructions .ROUTE .COMPLEX Qty: 90 3RF Dose Instruction: TAKE ONE TABLET BY MOUTH DAILY Rx Instructions: TAKE ONE TABLET BY MOUTH DAILY nicotine 14 mg/24 hr patch 24 hour 1 patch transdermal DAILY Qty: 14 0RF Follow-up/Referrals: Lee Gaxiola DO [Primary Care Provider, [facility][1]] Quality Angela Coma Scale Eyes: Open Verbal: Oriented and Alert Motor: Follows Commands [place] Coma Total Score: 15
[2025-09-22 20:08] LABS: EDCOVIDSCREEN Negative (Negative); EDINFLUASCREEN Negative (Negative); EDINFLUBSCREEN Negative (Negative)
[2025-09-22] MEDS: IPRATROPIUM 0.5 MG/ALBUTEROL SULFATE 2.5 MG (BASE) AMPUL.NEB 3 ML INHALATION (20:12)
--- NOTE | 2025-09-22 20:12 | ED.URI ---
HPI - URI/Sore Throat General Chief Complaint: Upper Respiratory Infection Stated Complaint: Respiratory Problems Time Seen by Provider: 09/22/25 19:52 Source: patient, RN notes reviewed and old records reviewed Mode of arrival: ambulatory Limitations: no limitations History of Present Illness HPI Narrative: 60 year old female who presents to [facility] care with complaints of cough, runny nose with shortness of breath with exertion since Monday. Patient reports that she has been using her inhaler, taking NyQuil and also Zicam for her symptoms. Patient reports that she has the nasal congestion and drainage with the cough and symptoms have seemed to increase today. Patient reports that she has not had any fever. chills or sweats.Patient has scattered wheezing throughout lung osullivan with SAO2 98% on room air. Patient was seen on 08/25/2025 with similar symptoms at that time. Patient reports that she has nicotiene patches with quit date scheduled for September 25. Patient reports that she is scheduled for chest and abdomen CT tomorrow. Patient has low heart rate reports that rate is normally low denies any dizziness or any lightheadedness. MD elicited complaint: cough, rhinorrhea, nasal congestion and other (shortness of breath with exertion cough and congestion) Pertinent past history: other (tobacco abuse, Lupus) Onset (ago): day(s) (4) Severity: moderate Able to tolerate fluids by mouth: Yes Treatments prior to arrival: other (NyQuil, Zicam and Albuterol inhaler) Related Data Allergies Allergy/AdvReac Type Severity Reaction Status Date / Time Penicillins Allergy Intermediate Unknown Verified 09/22/25 19:47 Sulfa (Sulfonamide Allergy Unknown EXACERBATION Verified 09/22/25 19:47 Antibiotics) OF LUPUS Review of Systems Review of Systems: CONSTITUTIONAL: Reports malaise,no chills, sweats, or fever. EYES: Denies visual changes, redness, or discharge. ENT: Reports rhinorrhea, congestion, sinus pain,no otalgia and no sore throat. CARDIOVASCULAR: Denies chest pain, palpitations, or edema. RESPIRATORY: Reports cough productive at times.? reports dyspnea with minimal exertion and cough GASTROINTESTINAL: Denies abdominal pain, nausea, vomiting, diarrhea SKIN: Denies rash or itching. MUSCULOSKELETAL: Denies myalgia. NEUROLOGIC: Denies headache. 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 LEIDA (generalized anxiety disorder) Nicotine dependence Hyperlipidemia FH: cholecystectomy Anxiety Depression Chronic back pain Lupus Arthritis Postmenopausal Hypercholesterolemia Surgical History Surgical History History of aorto-femoral bypass with stent Hx of cholecystectomy H/O spinal fusion L4-5S1 with hardware Previous section H/O tubal ligation History of appendectomy Family History Family History Other Family history of arthritis Hypertension Social History Social History Smoking packs per day: 1 Smoking cigarettes per day: 20.0 Years smoked: 37 Smoking pack-years: 37.00 Smoking status: Current every day smoker Tobacco type: cigarettes Alcohol intake: current Drinks per week: 1 Substance use: never Substance use type: does not use Living arrangements: with family Gender identity (if verbalized by the patient): Male Spiritual care concerns: No Comments At time of signature, agree with nursing past medical, surgical, social and family history. There is no relevant family history pertinent to the presenting complaint Exam Narrative: GENERAL: ill-appearing, well-nourished, and in some acute distress. HEAD: Normocephalic EYES: PERRLA, conjunctivae clear ENT: Nares clear, turbinates edematous and erythematous, clear discharge, sinus pressure. Mucous membranes moist. TM pearly casillas with dull light reflex bilaterally; no tragal tenderness. Oropharynx erythematous without lesions. Tonsils not enlarged and without exudate, no drooling, no hoarseness, no trismus, uvula midline.post nasal drainage noted NECK: Supple. No lymphadenopathy CHEST: scattered wheezing to auscultation, breath sounds equal. + wheezing,no rhonchi, rales, or stridor. No acute respiratory distress, speaks in full sentences. cough frequent at times productive, no tachypnea noted SAO2 98% on room air HEART: Regular rate and rhythm. No murmur heard. SKIN: Warm, dry, no rash. NEURO: Alert and oriented x3. PSYCH: Normal mood and affect Course Course Level of Care: Express Care Visit Vital Signs Vital signs: Vital Signs Temperature 36.9 C 09/22/25 19:42 Pulse Rate 46 L 09/22/25 19:42 Respiratory Rate 20 09/22/25 19:42 Blood Pressure 118/63 09/22/25 19:42 Pulse Oximetry 98 09/22/25 19:42 Oxygen Delivery Room Air 09/22/25 19:42 Temperature 36.9 C 09/22/25 19:42 Pulse Rate 46 L 09/22/25 19:42 Respiratory Rate 20 09/22/25 19:42 Blood Pressure 118/63 09/22/25 19:42 Pulse Oximetry 98 09/22/25 19:42 Oxygen Delivery Room Air 09/22/25 19:42 reviewed MDM MDM Narrative Medical decision making narrative: 60 year old female present to express care with increasing shortness of breath cough, nasal congestion and drainage over past 3 days with symptoms increasing today. Patient has scattered wheezing throughout lung osullivan with noted dyspnea with cough and minimal exertion. Patient received DuoNeb treatment in Express care with some decrease in wheezing noted and improved aeration. RX prednisone and Azithromycin sent to patient's pharmacy of choice and symptom control with use of inhaler and OTC medications.Patient tested negative for COVID and Influenza. STOP SMOKING Anticipatory guidance with reasons to seek care in ED reviewed with patient with understanding voiced. Differential Diagnosis Differential Diagnosis: Differential diagnostic considerations for shortness of breath?include respiratory failure, pulmonary embolus, ACS, COPD, CHF, pneumonia, pneumothorax, asthma, metabolic disorder, anxiety., bronchitis, tobacco dependency Lab Data [facility] Lab Attestation statement: I personally reviewed the patient's lab results. Lab results narrative: Covid antigen negative,Influenza A negative, Influenza B negative Labs: Lab Results 09/22/25 Range/Units 20:06 POC Influenza A Ag Negative (Negative) POC Influenza B Ag Negative (Negative) POC SARS CoV-2 Ag Negative (Negative) reviewed Critical Care Time Critical Care Time Critical Care Time: No Discharge Plan Discharge Clinical Impression: Bronchitis Patient Disposition: Home Condition: Stable Instructions: Antibiotic Form, Acute Bronchitis (ED) Additional Instructions: Increase fluids especially juices and water [id number] cough and cold medicine of your choice for your symptoms Prescription cough medicine as directed--caution drowsiness and no driving or alcohol Cough tablets as directed for cough--do not bite, chew or suck on--swallow whole Continue your inhaler/nebulizer as directed Steroids as directed--take with food heat to the face 20-30 minutes 4-6 times a day for pain Salt water gargles, throat lozenges or throat sprays as desired Antibiotic as directed--finished the medication Zyrtec, Claritin or Chanell daily and include Coricidin decongestant If your symptoms persist, change or worsen significantly before you can contact your personal physician then please, without delay, go to the emergency department for further evaluation. Follow-up with PCP in 7-10 days or sooner if needed Patient Language: Citizen Of [place] Prescriptions: New prednisone 20 mg tablet 40 mg PO DAILY 10 Days Qty: 20 0RF azithromycin 250 mg tablet See Rx Instructions .ROUTE .COMPLEX Qty: 6 0RF Rx Instructions: For 250 mg dose pack: take 500 mg today (day 1), then 250 mg for 4 days (days 2-5) No Action albuterol sulfate 90 mcg/actuation HFA aerosol inhaler 2 puff inhalation QID PRN (Reason: shortness of breath or wheezing) Qty: 8.5 0RF aspirin 81 mg tablet,chewable 81 mg PO DAILY Qty: 90 0RF escitalopram oxalate 10 mg tablet See Rx Instructions .ROUTE .COMPLEX Qty: 90 3RF Dose Instruction: TAKE 1 TABLET BY MOUTH EVERY DAY Rx Instructions: TAKE 1 TABLET BY MOUTH EVERY DAY hydroxychloroquine 200 mg tablet See Rx Instructions .ROUTE .COMPLEX Qty: 180 3RF Dose Instruction: TAKE ONE TABLET BY MOUTH TWICE A DAY Rx Instructions: TAKE ONE TABLET BY MOUTH TWICE A DAY metoprolol succinate 50 mg tablet extended release 24 hr See Rx Instructions .ROUTE .COMPLEX Qty: 180 3RF Dose Instruction: TAKE ONE TABLET BY MOUTH DAILY Rx Instructions: TAKE ONE TABLET BY MOUTH DAILY rosuvastatin 10 mg tablet See Rx Instructions .ROUTE .COMPLEX Qty: 90 3RF Dose Instruction: TAKE ONE TABLET BY MOUTH DAILY Rx Instructions: TAKE ONE TABLET BY MOUTH DAILY nicotine 14 mg/24 hr patch 24 hour 1 patch transdermal DAILY Qty: 14 0RF Follow-up/Referrals: Lee Gaxiola DO [Primary Care Provider, Family Practice] Stand Alone Forms: Work/School Release IP Time of Disposition: 20:26 [place] Coma Scale Eyes: Open Verbal: Oriented and Alert Motor: Follows Commands Angela Coma Total Score: 15
== END 2025-09-22 20:34 | disposition home or self-care (01) ==
PROVIDERS: Emergency Provider Registered Nurse; PCP Family Medicine
DX: J40 Bronchitis, not specified as acute or chronic (principal); Z87.891 Personal history of nicotine dependence; F41.8 Other specified anxiety disorders; M32.9 Systemic lupus erythematosus, unspecified; Z78.0 Asymptomatic menopausal state; E78.00 Pure hypercholesterolemia, unspecified; Z90.49 Acquired absence of other specified parts of digestive tract; Z20.822 Contact with and (suspected) exposure to COVID-19
CPT/HCPCS: 87426; 87804; 94640; 99213; G0463

== ENCOUNTER 2025-09-23 09:36 | Outpatient (CLI) | payer OTHER, SELFPAY ==
--- NOTE | ~2025-09-23 | CT_ITS ---
EXAMINATION: CTA abd aorta runoff DATE: 09/23/2025 10:54 INDICATION: Presence of other vascular implants and grafts TECHNIQUE: Computed tomographic angiography (CTA) of the abdominal, pelvis, and both lower extremities was performed with 150 mL Omnipaque 350 intravenous contrast. Automated exposure control and iterative reconstruction technique were employed. The dose-length product was 1027.48 mGy-cm. COMPARISON: None. FINDINGS: ABDOMINAL AORTA AND ITS BRANCHES: There is nonhemodynamically significant atherosclerotic plaque along the upper abdominal aorta. Patent aorto bifemoral bypass graft with complete occlusion of the infrarenal abdominal aorta below level of the takeoff of the bypass graft and extending to the bifurcation of the common iliac arteries. There is likely retrograde contrast desiccation of the bilateral external iliac arteries which likely supply the bilateral internal iliac arteries. The celiac axis, superior mesenteric and bilateral renal arteries are patent. Contrast is seen in the distal inferior mesenteric artery although its origin is not identified and suspect that it is occluded with collateral flow supplied by branches of the superior mesenteric artery. RIGHT LOWER EXTREMITY: No evident stenosis along right common femoral, superficial femoral and popliteal arteries. Intertibial artery appears atretic beginning in the and appears to occlude at the level of the mid lower leg with runoff below the ankle in the right posterior tibial and peroneal arteries. LEFT LOWER EXTREMITY: No evident stenosis along the left common femoral, superficial femoral and popliteal arteries with below the ankle in the left anterior tibial and posterior tibial arteries. The left peroneal artery decreasing caliber and becoming indiscernible just above level of the ankle. ADDITIONAL FINDINGS: Lung bases are clear. Heart size normal. No pericardial or pleural effusion. Cholecystectomy clips the gallbladder fossa. Liver, spleen, pancreas, bilateral adrenal glands and kidneys are normal. There are multiple small ventral hernias along a supraumbilical midline surgical scar. No bowel obstruction. Bladder is normal. The uterus is not identified and has likely been surgically resected. Severe lumbar spondylosis. There is grade 1 anterolisthesis L4 on L5 with instrumented L4-S1 posterior spinal fusion with bilateral vertical caridad and pedicle screw fixation. IMPRESSION: 1. Patent aortobifemoral bypass graft with occlusion of the eek distal abdominal aorta and bilateral common iliac arteries and retrograde filling of the bilateral external and internal iliac arteries via the patent bypass graft. 2. Two-vessel runoff below both ankles with occlusion of the right anterior tibial artery at the mid lower leg and narrowing of the left peroneal artery which no longer visualized just above level of the ankle. No other more proximal stenosis. Reviewed, dictated and finalized at location A. STITCHER MACHINE IMPRESSION: 1. Patent aortobifemoral bypass graft with occlusion of the eek distal abdo dayron aorta and bilateral common iliac arteries and retrograde filling of the b ilateral external and internal iliac arteries via the patent bypass graft. 2. Two-vessel runoff below both ankles with occlusion of the right anterior tib ial artery at the mid lower leg and narrowing of the left peroneal artery which no longer visualized just above level of the ankle. No other more proximal kofi nosis.
--- NOTE | ~2025-09-23 | CT_ITS ---
EXAMINATION:CT lung screening DATE: 09/23/2025 10:52 INDICATION: Personal history of nicotine dependence. TECHNIQUE: Computed tomography (CT) of the chest was performed without intravenous contrast. Automated exposure control and iterative reconstruction technique were employed. The dose-length product (DLP) was 89.31 mGy-cm. COMPARISON: None. FINDINGS: Calcified right lung nodules and calcified right hilar lymph nodes are consistent with old granulomatous disease. There are peripheral groundglass opacities in the upper lobes. There is mild atelectasis bilaterally. There is mild emphysema. No pleural effusion. The heart size is normal. There are coronary artery calcifications. No pericardial effusion. There are changes of cholecystectomy. There is severe cervical spondylosis and mild thoracic spondylosis. IMPRESSION: 1. Lung-RADS category 2: Benign appearance or behavior. Continue annual screening with noncontrast low-dose chest CT in 12 months. Reviewed, dictated and finalized at location E. E OPERATOR IMPRESSION: 1. Lung-RADS category 2: Benign appearance or behavior. Continue annual screeni ng with noncontrast low-dose chest CT in 12 months.
== END 2025-09-23 09:37 | disposition home or self-care (01) ==
LOC: CHSIMG 09:37
PROVIDERS: PCP Family Medicine; Visit Provider Family Medicine
DX: Z12.2 Encounter for screening for malignant neoplasm of respiratory organs (principal); Z87.891 Personal history of nicotine dependence
CPT/HCPCS: 71271; 75635; Q9967